=== PATIENT | male | born 1935 | race African-American/Black ===

== ENCOUNTER 2020-09-09 11:30 | Outpatient (CLI) | payer MEDICARE, SELFPAY ==
[2020-09-09 12:07] LABS: Alanine Aminotransferase 25 U/L (4-50); Aspartate Amino Transferase 44 U/L (17-59)
== END 2020-09-09 11:31 | disposition home or self-care (01) ==
PROVIDERS: PCP Internal Medicine; Visit Provider Podiatrist Foot & Ankle Surgery
DX: B35.1 Tinea unguium (principal)
CPT/HCPCS: 36415; 84450; 84460

== ENCOUNTER 2023-10-19 09:35 | Observation (INO) | payer MEDICARE, SELFPAY ==
[2023-10-19] VITALS (33 sets, daily range): BP systolic 106–151; BP diastolic 53–74; PULSE 59–75; RESP 13–19; TEMP 36.3–37.1; O2SAT 98–100; BMI 24.7
--- NOTE | ~2023-10-19 | CT_ITS ---
Non-contrast Head CT History: Head injury Technique: Axial non-contrast imaging of the brain was performed. Dose reduction technique was used on this scan by utilizing automated exposure control and iterative reconstruction technique. The dose -length product (DLP) was 605.33 mGy-cm. Findings: There is no evidence of intracranial hemorrhage, mass lesion, or acute infarct. Brain par enchyma appears normal. The ventricles and subarachnoid spaces are normal in size. The calvarium ap pears normal. The visualized paranasal sinuses and mastoid air cells are clear. Impression: No significant abnormality seen. Reviewed, dictated and finalized at [facility]. UMER SAFETY INSPECTOR Impression: No significant abnormality seen.
--- NOTE | ~2023-10-19 | MR_ITS ---
EXAMINATION: MR abdomen wo/w con DATE: 10/20/2023 13:09 INDICATION: Abnormal CT scan TECHNIQUE: Magnetic resonance imaging (MRI) of the abdomen was performed without and with 15 mL Multi serina intravenous contrast. Sequences included coronal T2-weighted SS-FSE, coronal and axial FS 2D-F IESTA, axial STIR FSE, axial T2-weighted SS-FSE, axial T2-weighted FS SS-FSE, axial diffusion-weighte d SE, axial dual-echo T1-weighted FSPGR, and axial and coronal T1-weighted LAVA. Postcontrast axial T 1-weighted LAVA images were obtained in a time course. Postcontrast coronal T1-weighted LAVA images w ere obtained. COMPARISON: CT dated 10/19/2023 FINDINGS: Borderline heart size. No pericardial or pleural effusion. Nonenhancing 3.0 x 3.3 cm complex cyst at the posterior right hepatic lobe predominantly T2 hypointense with small posterior region of increase d T1 and decreased T2 signal which could represent either blood or proteinaceous fluid. Couple additi onal 1.3 cm and 1.0 cm nonenhancing simple appearing T2 hyperintense hepatic cysts. Serpiginous dilat ed enhancing vessels at the dome of the liver corresponding to the region of concern on prior CT. The vessels enhance during portal venous phase there appears to be clearly enhancement of the draining p osterior right hepatic vein. Metallic magnetic field artifact associated with cholecystectomy clips t he gallbladder fossa. Likely secondary mild dilation of the common bile duct and mild dilation of por tions of the intrahepatic biliary tree extending to the dome of the right hepatic lobe. Spleen and bi lateral adrenal glands are normal. There are few T2 hyperintense nonenhancing cysts at the head and b arnie of the pancreas the largest pancreatic head measuring 2.3 cm in maximal diameter. Bilateral kidne ys are normal. Visualized portions of bowels are unremarkable. No pathologically enlarged abdominal l ymphadenopathy. Mild thoracolumbar dextrocurvature with mild thoracic and severe lower lumbar spondyl osis, the latter including fusion across the right side of the L4-L5 disc space. Normal marrow signal with no pathologic marrow replacing process. IMPRESSION: 1. 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 2. A few simple appearing cysts at the head and body the pancreas without evident solid enhancing sof t tissue component which suggests sequela of chronic pancreatitis. Correlate with clinical history an d recommend year follow-up pre and postcontrast MRI. Reviewed, dictated and finalized at location A. ING SUPERVISOR IMPRESSION: 1. Serpiginous and dilated enhancing vessel at the dome of the liver which appe ars to represent an intrahepatic portal venous-hepatic venous shunt. 2. A few simple appearing cysts at the head and body the pancreas without evide nt solid enhancing soft tissue component which suggests sequela of chronic panc reatitis. Correlate with clinical history and recommend year follow-up pre and postcontrast MRI.
--- NOTE | ~2023-10-19 | XR_ITS ---
. XR chest 2V 10/19/2023 12:42 Indication: Chest pain Procedure: 2 view chest Comparison: No prior studies for comparison. Findings: Heart size upper normal. No focal air space disease, pulmonary edema, pleural effusion or s uspected pneumothorax. Elevated right diaphragm. No acute osseous abnormality. Impression: 1: No acute cardiopulmonary disease. Reviewed, dictated and finalized at location L. MOTIVE OBSERVER Impression: 1: No acute cardiopulmonary disease.
--- NOTE | ~2023-10-19 | CT_ITS ---
EXAMINATION: CTA chest abdomen pelvis DATE: 10/19/2023 13:32 INDICATION: Chest wall pain post fall TECHNIQUE: Computed tomographic angiography (CTA) of the chest, abdomen, and pelvis was performed wit h 100 mL Omnipaque-350 intravenous contrast. Volume-rendered 3D-reconstructions of the aorta and larg e arteries were constructed by the technologist on a separate workstation. Automated exposure control and iterative reconstruction technique were employed. The dose-length product was 1009.52 mGy-cm. COMPARISON: None FINDINGS: Chest : Mild varicose bronchiectasis along a bronchus in the superior segment of the lingula. Eventration nirmal ng the right hemidiaphragm. No suspicious pulmonary nodules, pneumonia, pulmonary edema, pleural effu gwen or pneumothorax. Heart size is normal. Atherosclerotic coronary artery calcifications. No perica rdial effusion. Thoracic aorta is normal in caliber with no dissection or acute traumatic aortic inju ry. No pathologically enlarged thoracic lymphadenopathy. Small sliding-type hiatal hernia. Mild thora cic spondylosis with bridging osteophytes at multiple levels consistent with diffuse idiopathic skele timbo hyperostosis (DISH). No acute fracture. Abdomen and pelvis: There is heterogeneous enhancement at the dome of the liver with configuration suggesting dilated ves allen potentially a vascular malformation. Mild intra- and moderate extra hepatic biliary ductal dilati on likely related to prior cholecystectomy with surgical clips at the gallbladder fossa. No evident o bstructing stones or masses identified. 2.5 cm simple appearing cystic lesion at the head of the panc reas. Spleen, bilateral adrenal glands and kidneys are normal. Bowels including the appendix are norm al. Bladder is normal. Marked prostatomegaly measuring 6.3 x 6.2 cm in maximal transaxial dimensions. There is a 2.5 x 2.2 cm soft tissue density nodule extending cephalad from the region of the junctio n of the posterior prostate in the bilateral seminal vesicles. No free intraperitoneal gas or fluid. No pathologically enlarged abdominal or pelvic lymphadenopathy. There is calcified atherosclerosis sc attered throughout the normal caliber abdominal aorta and many of the other arteries. Moderate stenos is at the origin of the left renal artery with mild stenosis at the origin of the celiac axis and sup erior mesenteric artery. There is suggestion of a small dissection flap within the celiac axis. The m ore peripheral common hepatic artery and splenic artery appear normal. Severe lower lumbar spondylosi s. Developing ankylosis at the bilateral sacroiliac joints were advanced on the right. Severe right a nd moderate left hip osteoarthritis. No acute osseous abnormality. IMPRESSION: 1. No acute fracture or acute visceral organ injury in the chest, abdomen or pelvis. 2. Region of heterogeneous enhancement at the dome of the liver with appearance suggesting a dilated intrahepatic vessel, potentially related to vascular malformation. Recommend further evaluation with multiphase pre and postcontrast MRI or CT. 3. Small sliding-type hiatal hernia. 4. Scattered atherosclerotic calcific lesions with moderate stenosis at the origin of the left renal artery. 5. 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 6. Prostatomegaly with nonspecific 2.5 x 2.1 cm soft tissue density nodule potentially arising from t he prostate which extends posterior superiorly from the prostate between the bilateral seminal vesicl es and which could be either benign or malignant. Reviewed, dictated and finalized at location A. DRY SUPERVISOR IMPRESSION: 1. No acute fracture or acute visceral organ injury in the chest, abdomen or pe lvis. 2. Region of heterogeneous enhancement at the dome of the liver with appearance suggesting a dilated intrahepatic vessel
--- NOTE | 2023-10-19 12:06 | ECG_ITS ---
Measurements Intervals [place] Rate: 57 P: 45 DE: 194 QRS: 14 QRSD: 175 T: 37 QT: 462 QTc: 452 Interpretive Statements SINUS BRADYCARDIA RIGHT BUNDLE BRANCH BLOCK CANNOT RULE OUT SEPTAL INFARCT, AGE INDETERMINATE ABNORMAL ECG NO PREVIOUS ECG AVAILABLE FOR COMPARISON Electronically Signed On 10-19-2023 12:51:57 EXECUTIVE LEGAL SECRETARY by Vivek Wang D.O.
[2023-10-19 12:31] LABS: Basophils Absolute Auto 0.1 K/mm3 (0.0-0.1); Basophils Percent Auto 0.7 % (0.2-1.2); Eosinophils Absolute Auto 0.1 K/mm3 (0-0.3); Eosinophils Percent Auto 1.1 % (0-4.4); Hematocrit 22.3 % (42.0-52.0); Immature Granulocyte Absolute 0.02 K/mm3 (0.00-0.031); Immature Granulocyte Percent A 0.3 % (0-0.5); Immature Platelet Fraction Pct 5.6 % (0.9-11.2); Lymphocytes Percent Auto 14.7 % (18.3-44.2); Mean Corpuscular HGB Conc 25.6 g/dl (32-36); Mean Corpuscular Volume 62.5 fl (80-100); Mean Platelet Volume 10.2 fl (7.4-10.4); Monocytes Percent Auto 12.9 % (2.6-8.5); Neutrophils Absolute Auto 5.3 K/mm3 (1.3-6.7); Neutrophils Percent Auto 70.3 % (45.5-73.1); Platelet Count Result 278 k/mm3 (150-375); Red Blood Count 3.57 M/mm3 (4.6-6.20); Red Cell Distribution Width 20.7 % (11.5-14.5); White Blood Count 7.5 K/mm3 (4.5-10.0)
[2023-10-19 12:35] LABS: Hemoglobin 5.7 g/dL (14.0-18.0)
[2023-10-19 12:39] LABS: Hypochromasia 3+ (NORMAL); Platelet Estimate Adequate (Adequate); Schistocytes None Seen (NORMAL)
[2023-10-19 12:40] LABS: Ovalocytes 1+ (NORMAL); Target Cells 2+ (NORMAL); Tear Drop Cells 1+ (NORMAL)
[2023-10-19 12:41] LABS: Alanine Aminotransferase 12 U/L (6-50); Albumin Level 3.7 g/dL (3.5-5.1); Alkaline Phosphatase 59 U/L (38-126); Anion Gap 8 mmol/L (8-16); Aspartate Amino Transferase 27 U/L (17-59); Bilirubin,Total 0.5 mg/dL (0.2-1.3); Blood Urea Nitrogen 20 mg/dL (9-20); Calcium 9.2 mg/dL (8.4-10.2); Carbon Dioxide 26 mmol/L (22-30); Chloride 108 mmol/L (98-107); Estimated CRCL calculation 39 ml/min; Estimated Glomerular Filt Rate > 60; Glucose 93 mg/dL (65-110); Lipase 38 U/L (23-300); Potassium 4.1 mmol/L (3.4-5.0); Sodium 142 mmol/L (137-145)
[2023-10-19 12:51] LABS: Troponin I < 0.012 ng/mL (0.000-0.034)
[2023-10-19 12:54] LABS: Partial Thromboplastin Time 22.1 SECONDS (22.3-36.8); Prothrombin Time 13.9 Seconds (11.1-14.7)
--- NOTE | 2023-10-19 13:19 | ED.FALL ---
HPI - Fall General Chief Complaint: Fall Stated Complaint: fall/chest and hi no thinners Time Seen by Provider: 10/19/23 12:18 History of Present Illness HPI Narrative: 88-year-old male presents to the emergency department for evaluation after having a ground level fall. Patient states he was walking on a hardwood floor while wearing socks and slipped falling forward and striking his chest. Patient reports the pain is worsened with ambulation. Patient denies any associated shortness of breath with this. Patient denies any abdominal pain. Patient does not take any blood thinners. Patient has no prior history of anemia or GI bleed. Related Data Home Medications Medication Instructions Recorded Confirmed amlodipine 5 mg tablet 5 mg PO DAILY 02/26/23 10/19/23 brimonidine 0.2 %-timolol 0.5 % 1 drp EACH EYE Q12H 02/26/23 eye drops (Combigan) dorzolamide 2 % eye drops 1 drp EACH EYE TID 02/26/23 latanoprost 0.005 % eye drops 1 drp EACH EYE DAILY 02/26/23 olmesartan 40 1 tablet PO DAILY 02/26/23 mg-hydrochlorothiazide 25 mg tablet netarsudil 0.02 % eye drops drp 10/19/23 (Rhopressa) Allergies Allergy/AdvReac Type Severity Reaction Status Date / Time orphenadrine Allergy Unknown Verified 10/19/23 10:26 Review of Systems Review of Systems: All systems reviewed & are unremarkable except as noted in HPI and below PMFSH Past Medical History Medical History (Updated 10/19/23 @ 18:40 by Brayden Ford MD) Hypertension Primary osteoarthritis of knees, bilateral Exam Narrative: APPEARANCE: Well appearing, no pain, no distress, well-nourished. HEAD: normocephalic, atraumatic. EYES: PERRLA/EOMI, conjunctivae clear. NOSE: Normal no drainage EARS:TMS clear with good light reflex. THROAT: Pharynx clear, no exudate. NECK: Supple. No adenopathy, no masses. RESPIRATORY: Airway patent, respirations nonlabored. Clear to auscultation bilaterally, no rales, rhonchi, wheezing. CARDIOVASCULAR: Regular rate and rhythm without murmurs rubs or gallops. ABDOMINAL: Soft, nontender, nondistended, normal bowel sounds Rectal: Negative Hemoccult on the digital rectal exam MUSCULOSKELETAL: Moves all extremities. Strength/ROM intact, No edema, No calf tenderness. Right-sided chest wall tenderness NEURO: Alert. Cranial nerves II through XII intact. Grossly intact SKIN: Warm, dry. Normal Color Course Course Emergency Course: 88-year-old male presents emergency department for evaluation for chest wall pain and head injury after a ground level fall. Patient's hemoglobin was found to be 5.7. Patient does have pale conjunctiva. Patient has no acute abnormalities on his CMP. Chest x-ray showed no acute cardiopulmonary abnormality. Patient was Hemoccult negative on the digital rectal exam. CTA and CT head showed no explanation for the patient's symptoms. Case was discussed with hospitalist patient was accepted for admission. Patient family are updated on the results of the workup planned for admission Vital Signs Vital signs: Vital Signs Temperature 97.6 F 10/19/23 10:16 Pulse Rate 63 10/19/23 10:16 Respiratory Rate 16 10/19/23 10:16 Blood Pressure 109/57 L 10/19/23 10:16 Pulse Oximetry 100 10/19/23 10:16 Oxygen Delivery Room Air 10/19/23 10:16 Temperature 98.3 F 10/19/23 17:36 Pulse Rate 71 10/19/23 17:36 Respiratory Rate 17 10/19/23 17:36 Blood Pressure 129/64 10/19/23 17:36 Pulse Oximetry 100 10/19/23 17:36 Oxygen Delivery Room Air 10/19/23 10:16 MDM - Fall Differential Diagnosis Differential diagnosis: Likely other Lab Data Attestation: I reviewed the patient's lab results. 10/19/23 12:23 10/19/23 12:23 Labs: Lab Results 10/19/23 10/19/23 10/19/23 Range/Units 12:23 13:03 15:13 WBC 7.5 (4.5-10.0) K/mm3 RBC 3.57 L (4.6-6.20) M/mm3 Hgb 5.7 L* (14.0-18.0) g/dL Hct 22.3 L (42.0-52.0) % MCV 62.5 L (80-100)
[2023-10-19] MEDS: SODIUM CHLORIDE 0.9% IV 250 ML 30 ML IV CONT (14:26)
[2023-10-19] MEDS: TUBING, BLOOD SET 1 EACH XX (14:26)
--- NOTE | 2023-10-19 15:25 | ECG_ITS ---
Measurements Intervals [place] Rate: 63 P: 12 ID: 171 QRS: 26 QRSD: 157 T: 43 QT: 455 QTc: 466 Interpretive Statements SINUS RHYTHM RIGHT BUNDLE BRANCH BLOCK ABNORMAL ECG COMPARED TO ECG 10/19/2023 12:11:20 SINUS RHYTHM NOW PRESENT Electronically Signed On 10-20-2023 9:07:32 NUTRITION SERVICES ASSOCIATE by Vivek Wang D.O.
[2023-10-19 16:00] LABS: Immature Reticulocyte Fraction 20.5 % (3.0-15.9); Reticulocyte Hemoglobin Conten 15.7 pg (28.2-35.7); Reticulocyte Percent 1.72 % (0.7-4.3); Reticulocytes Absolute 0.06 M/mm3 (0.02-0.1)
[2023-10-19 16:01] LABS: Troponin I < 0.012 ng/mL (0.000-0.034)
--- NOTE | 2023-10-19 16:25 | PC.NURSE ---
Attempted to draw new labs ordered and was unsuccessful X3. Phlebotomy called to attempt.
[2023-10-19 16:55] LABS: Iron 16 ug/dL (49-181)
[2023-10-19 17:06] LABS: Percent Iron Saturation 4 % (20-50)
[2023-10-19 17:32] LABS: Ferritin 5.21 ng/mL (11.1-264)
[2023-10-19 18:04] LABS: Folic Acid 12.7 ng/mL (2.76->20)
--- NOTE | 2023-10-19 19:32 | PM.IMHP ---
H&P: HPI History of Present Illness Date/Time: 10/19/23 20:15 Chief Complaint: Fall. Narrative: This is an 88-year-old male with hypertension who presented to the emergency department via private vehicle from home for evaluation after a fall. The patient provides the following history. Patient states he was walking on a hardwood floor in his home while wearing socks and he accidentally slipped and fall forward, striking his chest on the floor. He reports pain in the anterior chest since that time, worse with movement and ambulation. He has no other complaints of injury and denies head trauma and loss of consciousness. He denies feeling lightheaded and dizzy prior to the fall and reports that it was purely mechanical. He also denies recent cold and flu symptoms, pleuritic pain, nausea, vomiting, diarrhea, melena, hematochezia, edema, and calf pain. Vital signs were stable on arrival to the ED. Labs were significant for a hemoglobin of 5.7, hematocrit 22.3%, MCV 62.5, troponin <0.012. EKG showed sinus bradycardia with right bundle branch block and possible age-indeterminate septal infarct. Head CT was normal. CTA of the chest, abdomen, and pelvis showed no acute fracture or acute visceral organ injury but several other incidental findings including heterogeneous enhancement of the dome of the liver which is potentially related to vascular malformation, small sliding type hiatal hernia, scattered atherosclerotic lesions with moderate stenosis at the origin of the renal artery on the left, suggestion of a short dissection flap along the celiac axis, and prostatomegaly with a nonspecific 2.5 x 2.1 cm soft tissue density. Stool was Hemoccult negative on digital rectal exam per ED physician. He has not noticed any dark stools or bright red blood in the stools. Colonoscopy many years ago showed benign polyps. His weight has remained stable. He has not had any abdominal pain. He is being admitted in this setting for blood transfusion, close monitoring, and further evaluation. Review of Systems Review of Systems: Twelve systems were reviewed. No history of cardiac disease or cardiac dysrhythmia. He wore an event monitor last month for 7 days as he was having ?funny feelings? in his chest. He denied overt chest pain and feelings of irregular heartbeat. Reportedly the event monitor did not show any specific findings. He has a heart murmur on exam but has not had exertional chest pain, syncope, near syncope, or shortness of breath. No lower extremity edema. Except as documented, all other systems were reviewed and are negative. [facility] Past Medical History Medical History Atherosclerotic vascular disease Enlarged prostate Glaucoma Hypertension Primary osteoarthritis of knees, bilateral Surgical History Surgical History (Updated 10/20/23 @ 00:16 by Daisha Nicole PA-C) History of cholecystectomy Family History Family History (Updated 10/20/23 @ 00:16 by Daisha Nicole PA-C) Other Family history non-contributory Social History Social History (Updated 10/20/23 @ 00:18 by Daisha Nicole PA-C) Social History: Surrogate medical decision maker: Jeaneth Richardson, spouse. Code status: Full code. Smoking status: Former smoker Alcohol intake: never Substance use: never Do You Feel Safe in your Home?: Yes Lack of Transportation: No Lack of Food: Never True Current Housing: I Have Housing Concerned About Future Housing: No Difficulty Paying Gas/Electric Bills: No Difficulty Paying for Meds: No Currently Unemployed: No Education: Decline to Answer Difficulty w/ Childcare or Family Care: No Additional living arrangements comments: Lives with spouse in [place]. Children live close and are around frequently. Additional occupation/education comments: Retired from [employer]. Spiritual care concerns: No Meds Home Medications and Allergies
--- NOTE | 2023-10-19 19:46 | ADMGEN ---
This patient, Henry Richardson, was admitted to IMU Room 200-01. Patient/family oriented to hospital policies and general routines including ID bracelet, bed and alarms, visiting hours, pain management, procedures, bathroom and other care routines, personal items, smoking policy, room service/diet, and visiting hours. Information on how to activate the Rapid Response Team has been discussed. Patient/Family are encouraged to report perceived risks to care and to ask questions if they do not understand what they are told or what they should do.
[2023-10-19 21:14] LABS: Troponin I < 0.012 ng/mL (0.000-0.034)
[2023-10-19 22:54] LABS: Hematocrit 29.3 % (42.0-52.0); Hemoglobin 8.2 g/dL (14.0-18.0)
[2023-10-20] VITALS (24 sets, daily range): BP systolic 124–152; BP diastolic 48–72; PULSE 53–74; RESP 16–18; TEMP 36.4–37.1; O2SAT 96–100; BMI 24.7
[2023-10-20 05:14] LABS: Hematocrit 27.7 % (42.0-52.0); Hemoglobin 7.8 g/dL (14.0-18.0); Immature Platelet Fraction Pct 5.7 % (0.9-11.2); Mean Corpuscular HGB Conc 28.2 g/dl (32-36); Mean Corpuscular Hemoglobin 19.4 pg (26-34); Mean Corpuscular Volume 68.7 fl (80-100); Mean Platelet Volume 9.7 fl (7.4-10.4); Platelet Count Result 237 k/mm3 (150-375); Red Blood Count 4.03 M/mm3 (4.6-6.20); White Blood Count 7.3 K/mm3 (4.5-10.0)
[2023-10-20 05:20] LABS: Anion Gap 4 mmol/L (8-16); Blood Urea Nitrogen 15 mg/dL (9-20); Calcium 8.9 mg/dL (8.4-10.2); Carbon Dioxide 26 mmol/L (22-30); Chloride 110 mmol/L (98-107); Cholesterol 123 mg/dL (0-200); Estimated CRCL calculation 41 ml/min; Estimated Glomerular Filt Rate > 60; Glucose 89 mg/dL (65-110); HDL Direct 49 mg/dL; Magnesium 2.2 mg/dL (1.6-2.3); Potassium 3.8 mmol/L (3.4-5.0); Sodium 140 mmol/L (137-145); Triglycerides 84 mg/dL (<150)
[2023-10-20 05:31] LABS: LDL Cholesterol Direct 52 mg/dL
--- NOTE | 2023-10-20 08:37 | PM.IMPN ---
Progress Note: A&P Assessment and Plan (1) Chest wall pain: Code(s): R07.89 - Other chest pain Status: Acute Assessment and Plan: Patient sustained a ground level fall and fell forward onto his chest. CTA of the chest, abdomen, and pelvis did not show any acute fractures or visceral organ injury. Pain likely musculoskeletal though EKG shows possible age-indeterminate infarct. Echocardiogram ordered to evaluate EKG and murmurs on exam. (2) Microcytic anemia: Code(s): D50.9 - Iron deficiency anemia, unspecified Status: Acute Assessment and Plan: Hemoglobin was 5.7 on arrival. MCV suggestive of profound iron deficiency. Stool was Hemoccult negative on rectal exam per ED physician. B12 and folate within normal limits, hemoglobin electrophoresis ordered and pending Appears to have iron deficiency anemia, will defer further management to Hematology/Oncology consultation, pending Transfused 2 units packed red blood cells 10/19 Hemoglobin 7.8 today, monitor 10/20: venofer ordered by heme/onc, started on ferrous sulfate + colace and miralax (3) Enlarged prostate: Code(s): N40.0 - Benign prostatic hyperplasia without lower urinary tract symptoms Status: Acute Assessment and Plan: CT shows prostatomegaly with a nonspecific 2.5 x 2.1 cm soft tissue density nodule potentially arising from prostate. Abdominal MRI ordered for further characterization of the liver abnormality may get a better picture of this nodule. (4) Abnormal finding on imaging of liver: Code(s): R93.2 - Abnormal findings on diagnostic imaging of liver and biliary tract Status: Acute Assessment and Plan: CT showed region of heterogeneous enhancement at the dome of the liver with recommendations for pre and postcontrast imaging to evaluate for possible vascular malformation. 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 Patient denies abdominal pain; blood pressures are pretty well controlled. Does not seem to be causing acute issues; should follow with vascular as an outpatient. (6) Hypertension: Code(s): I10 - Essential (primary) hypertension Status: Acute Assessment and Plan: Blood pressures were reviewed 10/20 and they are stable. Continue amlodipine, olmesartan, and hydrochlorothiazide. (7) Glaucoma: Code(s): H40.9 - Unspecified glaucoma Status: Acute Assessment and Plan: Continue eyedrops; he may take his medications from home if non formulary. Plan DVT prophylaxis with SCDs GI prophylaxis not indicated Code status full code Subjective Date/time seen: 10/20/23 08:37 Interval history: 88-year-old male with history of hypertension is presenting after a fall. No overnight events noted. No chest pain or shortness of breath. No nausea, vomiting or diarrhea. No fevers or chills. Patient has not had a bowel movement since Wednesday and is requesting a stool softener. Review of Systems Review of Systems: 12 point review of systems was assessed and was negative except as noted in the HPI Exam Narrative: General: No acute distress, alert and oriented per baseline HEENT: Atraumatic, normocephalic, mucous membranes moist CV: Regular rate and rhythm, S1, S2 Lungs: Clear to auscultation bilaterally, no rales or crackles noted, no wheezes, good air entry Abdomen: Soft, nontender, nondistended Extremities: Normal to inspection Skin: No rashes noted, no lesions or wounds seen Psych: Euthymic, normal affect Objective Data Vital Signs Vital Signs: Vital Signs - 24 hr 10/19/23 10:16 10/19/23 13:00 10/19/23 14:00 Temperature 97.
[2023-10-20] MEDS: PERFLUTREN LIPID MICROSPHERES 1.5 ML VIAL DILUTED TO 10 ML TOTAL VOLUME IV PUSH (09:25)
[2023-10-20 10:01] LABS: Prostate Specific Antigen 5.7 ng/mL (< OR = 4.0)
[2023-10-20] MEDS: amLODIPine BESYLATE 5 MG TABLET PO (10:23)
[2023-10-20] MEDS: OLMESARTAN MEDOXOMIL 20 MG TABLET 40 MG PO (10:23)
[2023-10-20] MEDS: hydroCHLOROthiazide 25 MG TABLET PO (10:23)
[2023-10-20] MEDS: DORZOLAMIDE HCL 2% OPHTH DROPS 1 DROP EACH EYE ×2 (10:24→22:00)
[2023-10-20] MEDS: LATANOPROST 0.005% OP SOLN 2.5 ML BTL 1 DROP EACH EYE (10:25)
--- NOTE | 2023-10-20 10:34 | PDONCCN ---
HPI - Date of Consult Date/Time: 10/20/23 18:34 <Mathieu Friedman - 10/20/23 18:38> 10/20/23 10:34 <Krystal Sher - 10/20/23 10:45> Requesting Physician: Enoch Bueno MD <Mathieu Friedman - 10/20/23 18:38> Enoch Bueno MD <Krystal Sher - 10/20/23 10:45> Primary Care Provider: Martin Mclean, <Mathieu Friedman - 10/20/23 18:38> Martin SierraMD <Krystal Sher - 10/20/23 10:45> - Consult Narrative Reason for consult: Anemia <Krystal Sher - 10/20/23 10:45> Narrative: Henry Richardson is a 88 year old male <Mathieu Friedman - 10/20/23 18:38> Henry Richardson is a 88 year old male with a past medical history of hypertension who presented to the emergency department after a fall. He states he was already up and walking and went to grab the dresser and fell on the floor hitting his chest. He denies dizziness or hitting his head. He denies nausea, vomiting, diarrhea, melena, hematochezia. Labs were notable for a hemoglobin of 5.7, hematocrit 22.3%, MCV 62.5. EKG showed sinus bradycardia with right bundle branch block and possible age-indeterminate septal infarct. Head CT was normal. CTA of the chest, abdomen, and pelvis showed no acute fracture or acute visceral organ injury but several other incidental findings including heterogeneous enhancement of the dome of the liver which is potentially related to vascular malformation, and prostatomegaly with a nonspecific 2.5 x 2.1 cm soft tissue density. Stool was hemoccult negative on digital rectal exam per ED physician. He has not noticed any dark stools or bright red blood in the stools. Colonoscopy many years ago showed benign polyps. His weight has remained stable. He denies abdominal pain. He denies any issues with his prostate in the past. His daughter reports regular PSA and blood checks. He denies any urinary issues or blood in his urine. He received 2 units of PRBCS and Hgb now 7.8. Iron studies found to be severely iron deficiency with iron of 16, % sat 4, ferritin 5, and B12 788. There is a family history of sickle cell trait. No history of anemia, iron deficiency, blood donations, or stomach surgeries in the past. <GoyomichaelKrystal 10/20/23 11:00> Review of Systems - Review of Systems All systems reviewed & are unremarkable except as noted in HPI and bel <GoyomichaelKrystal 10/20/23 10:45> [facility] Medical History: Medical History (Last Reviewed 10/20/23 @ 00:16 by Daisha Nicole PA-C) Atherosclerotic vascular disease Enlarged prostate Glaucoma Hypertension Primary osteoarthritis of knees, bilateral <Mathieu Friedman M. - 10/20/23 18:38> Medical History (Last Reviewed 10/20/23 @ 00:16 by Daisha Nicole PA-C) Atherosclerotic vascular disease Enlarged prostate Glaucoma Hypertension Primary osteoarthritis of knees, bilateral <NikkyKrystal 10/20/23 10:45> Surgical History: Surgical History (Last Updated 10/20/23 @ 00:16 by Daisha Nicole PA-C) History of cholecystectomy <Mathieu Friedman M. - 10/20/23 18:38> Surgical History (Last Updated 10/20/23 @ 00:16 by Daisha Niocle PA-C) History of cholecystectomy <NikkyKrystal 10/20/23 10:45> Family History: Family History (Last Updated 10/20/23 @ 00:16 by Daisha Nicole PA-C) Other Family history non-contributory <Mathieu Friedman M. - 10/20/23 18:38> Family History (Last Updated 10/20/23 @ 00:16 by Daisha Nicole PA-C) Other Family history non-contributory <Krystal Sher 10/20/23 10:45> - Social History Social History: Social History (Last Updated 10/20/23 @ 00:18 by Daisha Nicole PA-C) Alcohol Use: Alcohol intake: never Substance Use: Substance use: never Others: Spiritual care concerns: No Smoking Status: Smoking status: Former smoker Approximate Smoking E
[2023-10-20 10:47] LABS: Reticulocyte Hemoglobin Conten 16.9 pg (28.2-35.7); Reticulocyte Percent 0.81 % (0.7-4.3); Reticulocytes Absolute 0.03 M/mm3 (0.02-0.1)
[2023-10-20 10:48] LABS: Lactate Dehydrogenase 192 U/L (120-246)
--- NOTE | 2023-10-20 11:16 | IVDEFINITY ---
Prior to administration of IV Definity the patient was educated on the risks and benefits of the imaging enhancing agent including potential adverse side effects. The patient verbalized understanding. Allergies were verified. No exclusion criteria were identified and at least one of the following inclusion criteria were met: 1) physician request, 2) patient technically difficult to image (per the [place] [employer] guidelines of two or more segments not discernable within the apical view), or 3) questionable left ventricular function. ?
[2023-10-20] MEDS: IRON SUCROSE COMPLEX 500 MG in SODIUM CHLORIDE 0.9% IV 250 ML 78.57 MG IVPB (11:45)
[2023-10-20] MEDS: BRIMONIDINE TARTRATE 0.2% OP SOLN 5 ML BTL 1 DROP EACH EYE ×2 (11:46→22:00)
[2023-10-20] MEDS: TIMOLOL MALEATE 0.5% OP SOLN 5 ML BOTTLE 1 DROP EACH EYE ×2 (11:46→22:00)
[2023-10-20 15:51] LABS: IFOB Positive Control Positive; Immunochemical Fecal Occult Bl Positive (N)
[2023-10-20] MEDS: FERROUS SULFATE 325 MG TABLET DR PO (17:32)
--- NOTE | 2023-10-20 19:51 | ECHO_ITS ---
Patient Info Name: Henry Richardson Age: 88 years : 1935 Gender: Male Ht: 68 in Wt: 180 lbs BSA: 2.00 m2 HR: 58 bpm BP: 124 / 48 mmHg Heart Rhythm: Sinus Rhythm Technical Quality: Good Exam Date: 10/20/2023 8:58 AM Exam Location: Echo Lab Patient Status: Outpatient Admit Date: 10/19/2023 Staff Ordering Physician: Daisha Nicole PA-C Residential Program Worker: Kassidy Bowers RDCS Attending Provider: Enoch Bueno MD Referring Physician: Corey VO; Exam Type: CA echo dop color flow w con Study Info Indications - chest pain, htn, abn ekg Complete two-dimensional, color flow and Doppler transthoracic echocardiogram is performed with contrast to opacify the left ventricle and to improve the deliniation of the left ventricle endocardial borders. Summary 1. Left ventricular chamber dimension is normal. 2. Left ventricular systolic function is normal, estimated at 60-65%. 3. There is no increased left ventricular wall thickness. 4. The left ventricular diastolic function is grade I diastolic dysfunction. 5. There is mild tricuspid valve regurgitation. 6. There is moderate aortic valve sclerosis. Left Ventricle Left ventricular chamber dimension is normal. Left ventricular systolic function is normal, estimated at 60-65%. There is no increased left ventricular wall thickness. The left ventricular diastolic function is grade I diastolic dysfunction. Right Ventricle Right ventricular chamber dimension is normal. Right ventricular systolic function is normal. Left Atria Left atrial chamber dimension is normal. Right Atria Right atrial chamber dimension is normal. Atrial Septum Intact interatrial septum visualized by color flow imaging. Aortic Valve The aortic valve is trileaflet. There is moderate aortic valve sclerosis. There is no aortic valve stenosis. There is trace aortic valve regurgitation. Pulmonic Valve The pulmonic valve is normal. There is no pulmonic valve stenosis. There is trace pulmonic regurgitation. Mitral Valve The mitral valve has normal leaflets. There is no mitral valve stenosis. There is trace mitral valve regurgitation. Tricuspid Valve The tricuspid valve leaflets are normal. There is no significant tricuspid valve stenosis. There is mild tricuspid valve regurgitation. No pulmonary hypertension, estimated pulmonary arterial systolic pressure is 32 mmHg. Pericardium/Pleural The pericardium appears normal. There is no pericardial effusion. Inferior Vena Cava Normal inferior vena cava with >50% collapse upon inspiration consistent with normal right atrial pressure, 10 mmHg. Aorta The aortic root size at the sinus of Valsalva is normal. The prox ascending aorta size is normal. Left Ventricular Outflow Tract Name Value Normal LVOT 2D LVOT Diameter 1.97 cm LVOT Doppler LVOT Peak Gradient 14 mmHg LVOT Mean Gradient 7 mmHg LVOT VTI 42.30 cm LVOT VTI/AV VTI Ratio 0.92 LVOT Stroke Volume 128.34 ml LVOT CO 7.51 l/min LVOT CI 3.77 L/min/m2
[2023-10-20] MEDS: SENNA/DOCUSATE SODIUM TABLET 1 TAB PO (22:00)
[2023-10-20] MEDS: ONDANSETRON INJ 4 MG/2 ML VIAL IV PUSH (23:40)
[2023-10-20] MEDS: PANTOPRAZOLE SODIUM IV 40 MG VIAL IV PUSH (23:40)
[2023-10-21] VITALS (15 sets, daily range): BP systolic 108–148; BP diastolic 46–63; PULSE 51–77; RESP 16–20; TEMP 36.3–36.9; O2SAT 95–100
[2023-10-21 05:15] LABS: Basophils Absolute Auto 0.1 K/mm3 (0.0-0.1); Basophils Percent Auto 0.5 % (0.2-1.2); Eosinophils Absolute Auto 0.2 K/mm3 (0-0.3); Eosinophils Percent Auto 1.2 % (0-4.4); Hematocrit 28.8 % (42.0-52.0); Hemoglobin 8.1 g/dL (14.0-18.0); Immature Granulocyte Absolute 0.07 K/mm3 (0.00-0.031); Immature Granulocyte Percent A 0.6 % (0-0.5); Immature Platelet Fraction Pct 7.2 % (0.9-11.2); Lymphocytes Percent Auto 6.5 % (18.3-44.2); Mean Corpuscular HGB Conc 28.1 g/dl (32-36); Mean Corpuscular Hemoglobin 19.3 pg (26-34); Mean Corpuscular Volume 68.6 fl (80-100); Monocytes Absolute Auto 1.4 K/mm3 (0.1-0.6); Monocytes Percent Auto 11.7 % (2.6-8.5); Neutrophils Absolute Auto 9.7 K/mm3 (1.3-6.7); Neutrophils Percent Auto 79.5 % (45.5-73.1); Nucleated Red Blood Cells Perc 0.3 % (0.0-0.2); Platelet Count Result 205 k/mm3 (150-375); Red Cell Distribution Width 28.7 % (11.5-14.5); White Blood Count 12.3 K/mm3 (4.5-10.0)
[2023-10-21 05:34] LABS: Alanine Aminotransferase 14 U/L (6-50); Albumin Level 2.9 g/dL (3.5-5.1); Alkaline Phosphatase 53 U/L (38-126); Anion Gap 5 mmol/L (8-16); Aspartate Amino Transferase 27 U/L (17-59); Bilirubin,Total 0.6 mg/dL (0.2-1.3); Blood Urea Nitrogen 14 mg/dL (9-20); Calcium 8.7 mg/dL (8.4-10.2); Carbon Dioxide 25 mmol/L (22-30); Chloride 107 mmol/L (98-107); Estimated CRCL calculation 41 ml/min; Estimated Glomerular Filt Rate > 60; Glucose 100 mg/dL (65-110); Potassium 3.9 mmol/L (3.4-5.0); Sodium 137 mmol/L (137-145)
[2023-10-21 05:40] LABS: Hypochromasia 2+ (NORMAL); Platelet Estimate Adequate (Adequate)
[2023-10-21 05:41] LABS: Anisocytosis 1+ (NORMAL); Large Platelets Present; Ovalocytes 1+ (NORMAL); Polychromasia 1+ (NORMAL); Schistocytes Rare (NORMAL); Tear Drop Cells 1+ (NORMAL)
--- NOTE | 2023-10-21 08:35 | PM.IMPN ---
Progress Note: A&P Assessment and Plan (1) Chest wall pain: Code(s): R07.89 - Other chest pain Status: Acute Assessment and Plan: Patient sustained a ground level fall and fell forward onto his chest. CTA of the chest, abdomen, and pelvis did not show any acute fractures or visceral organ injury. PT OT ordered on 10/21. He has an abundance of support at home. (2) Microcytic anemia: Code(s): D50.9 - Iron deficiency anemia, unspecified Status: Acute Assessment and Plan: Hemoglobin was 5.7 on arrival. MCV suggestive of profound iron deficiency. Stool was Hemoccult negative on rectal exam per ED physician. Stool Hemoccult reported positive on 10/20 B12 and folate within normal limits, hemoglobin electrophoresis ordered and pending Transfused 2 units packed red blood cells 10/19. Hematology consulted. Severely iron deficient. Iron infusion ordered. Continue iron and stool softeners per Oncology. GI consult pending. Continue to monitor hemoglobin. (3) Enlarged prostate: Code(s): N40.0 - Benign prostatic hyperplasia without lower urinary tract symptoms Status: Acute Assessment and Plan: CT shows prostatomegaly with a nonspecific 2.5 x 2.1 cm soft tissue density nodule potentially arising from prostate. PSA elevated at 5.7 daughter reports he had a prostate biopsy sometime in the past. Defer further management to Oncology. 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 It appears to be non problematic and asymptomatic. Appreciate GI and Oncology recs. 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 Does not seem to be causing acute issues; should follow with vascular as an outpatient. (6) Hypertension: Code(s): I10 - Essential (primary) hypertension Status: Acute Assessment and Plan: Continue amlodipine, olmesartan, and hydrochlorothiazide. (7) Glaucoma: Code(s): H40.9 - Unspecified glaucoma Status: Acute Assessment and Plan: Continue eyedrops; he may take his medications from home if non formulary. (8) Leukocytosis: Code(s): D72.829 - Elevated white blood cell count, unspecified Status: Acute Assessment and Plan: Afebrile. Nontoxic continue to monitor. Check procalcitonin in the a.m.. Plan DVT prophylaxis with SCDs GI prophylaxis not indicated Code status full code Subjective Date/time seen: 10/21/23 08:35 Interval history: Patient seen sitting up in bed. His daughter Nai is present. He was wishing to go home today although amenable to stay after further discussion. Complains of lower abdominal discomfort points to his pelvic region. Reporting relief with defecation. Last BM was yes and Wednesday before that. Review of Systems Review of Systems: All systems reviewed & are unremarkable except as noted in HPI and below (Subjective) Exam Const: General: comfortable and no acute distress Eyes: Pupils: Equal, round and reactive pupils present Neck: Neck: supple Resp: Effort & Inspection: normal respiratory effort Auscultation: clear to auscultation bilaterally Cardio: Rate: regular rate Rhythm: regular rhythm GI: Inspection: non-distended GI Palp: Yes Soft to palpation, No Firmness to palpation present (GI), No Tenderness to palpation present (GI) and No Guarding due to palpation present (GI) Auscultation: normal
[2023-10-21] MEDS: amLODIPine BESYLATE 5 MG TABLET PO (08:36)
[2023-10-21] MEDS: FERROUS SULFATE 325 MG TABLET DR PO ×2 (08:37→17:34)
[2023-10-21] MEDS: LATANOPROST 0.005% OP SOLN 2.5 ML BTL 1 DROP EACH EYE (08:37)
[2023-10-21] MEDS: OLMESARTAN MEDOXOMIL 20 MG TABLET 40 MG PO (08:37)
[2023-10-21] MEDS: hydroCHLOROthiazide 25 MG TABLET PO (08:37)
[2023-10-21] MEDS: IRON SUCROSE COMPLEX 500 MG in SODIUM CHLORIDE 0.9% IV 250 ML 78 MG IVPB (08:40)
[2023-10-21] MEDS: BRIMONIDINE TARTRATE 0.2% OP SOLN 5 ML BTL 1 DROP EACH EYE ×2 (08:41→20:33)
[2023-10-21] MEDS: DORZOLAMIDE HCL 2% OPHTH DROPS 1 DROP EACH EYE ×2 (08:42→20:33)
[2023-10-21] MEDS: polyethylene glycoL 3350 17 GM POWD.PACK PO (08:42)
[2023-10-21] MEDS: PANTOPRAZOLE SODIUM IV 40 MG VIAL IV PUSH ×2 (08:42→20:31)
[2023-10-21] MEDS: TIMOLOL MALEATE 0.5% OP SOLN 5 ML BOTTLE 1 DROP EACH EYE ×2 (08:42→20:33)
[2023-10-21 15:17] LABS: Appearance Urine Clear (Clear); Bilirubin Urine Negative (Negative); Blood Urine Negative (Negative); Color Urine Yellow (Yellow); Glucose Urine UA Negative (Negative); Ketones Urine Negative (Negative); Leukocyte Esterase Ur Negative LEU/UL (Negative); Nitrate Urine Negative (Negative); Protein Urine Negative (Negative); Specific Grav Ur 1.013 (1.001-1.035); Urobilinogen Urine 0.2 mg/dL (<2.0); pH Urine 5.5 (5.0-9.0)
[2023-10-21 15:30] LABS: Add Urine Microscopic? NO
--- NOTE | 2023-10-21 16:44 | WPDGICN ---
Assessment and Plan Assessment and plan (1) Iron deficiency anemia: Code(s): D50.9 - Iron deficiency anemia, unspecified Status: Acute Assessment and Plan: denies overt gib but had + FOBT better now differential could be avm, malignancy, ulcer, etc given advanced age, patient and daughter leaning towards just only conservative approach. 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 He was walking and fell on the floor hitting his chest, denies dizziness. Family got concerned and came to ER. Labs showed hemoglobin of 5.7, hematocrit 22.3%, MCV 62.5 c/w BROOK. Head CT was normal. CTA of the chest, abdomen, and pelvis reviewed, showed no acute fracture or acute visceral organ injury but several other incidental findings including heterogeneous enhancement of the dome of the liver which is potentially related to vascular malformation, and prostatomegaly. He denies overt gib but had + FOBT. He says that had colonoscopy but probably more than 20 years ago. Daughter is at bedside Review of Systems Constitutional: Constitutional: Denies difficulty sleeping Eyes: Eyes: Denies blurry vision ENT: Reports Normal hearing present Cardiovascular: Cardiovascular: Denies lightheadedness Respiratory: Respiratory: Denies cough Gastrointestinal: Gastrointestinal: Denies abdominal pain Genitourinary: Genitourinary: Denies flank pain Musculoskeletal: Musculoskeletal: Denies neck pain Integumentary/Breasts: Skin/Breast: Denies rash Neurologic: Denies Abnormal speech present Psychiatric: Psychiatric: Denies behavioral changes [facility] Past Medical History Medical History (Updated 10/21/23 @ 16:47 by Bryant Briceño MD) Atherosclerotic vascular disease Enlarged prostate Glaucoma Hypertension Iron deficiency anemia Primary osteoarthritis of knees, bilateral Vascular malformation of liver Surgical History Surgical History (Updated 10/20/23 @ 10:45 by Krystal Sher APRN) History of cholecystectomy Family History Family History (Updated 10/20/23 @ 00:16 by Daisha Nicloe PA-C) Other Family history non-contributory Social History Social History (Updated 10/20/23 @ 00:18 by Daisha Nicole PA-C) Social History: Surrogate medical decision maker: Jeaneth Richardson, spouse. Code status: Full code. Smoking status: Former smoker Alcohol intake: never Substance use: never Do You Feel Safe in your Home?: Yes Lack of Transportation: No Lack of Food: Never True Current Housing: I Have Housing Concerned About Future Housing: No Difficulty Paying Gas/Electric Bills: No Difficulty Paying for Meds: No Currently Unemployed: No Education: Decline to Answer Difficulty w/ Childcare or Family Care: No Additional living arrangements comments: Lives with spouse in [place]. Children live close and are around frequently. Additional occupation/education comments: Retired from [employer]. Spiritual care concerns: No Meds Home Medications and Allergies Home Medications Medication Instructions Recorded Confirmed Type amlodipine 5 mg tablet 5 mg PO DAILY 02/26/23 10/19/23 History brimonidine 0.2 %-timolol 0
--- NOTE | 2023-10-21 17:38 | PC.NURSE ---
This patient, Henry Richardson, was transferred to [[address] [place] [address] ] on 10/21/23 at 1739. Personal belongings sent with patient. Report given to [SAMIRA Parry ]. Appropriate documentation sent with patient. Patient alert and oriented. Family aware of transfer.
--- NOTE | 2023-10-21 17:54 | PC.NURSE ---
This patient, Henry Richardson, was received from IMU on 10/21/23 at 1754. Patient/family oriented to unit policies and routines
[2023-10-21] MEDS: SENNA/DOCUSATE SODIUM TABLET 1 TAB PO (20:32)
[2023-10-22] VITALS (9 sets, daily range): BP systolic 109–140; BP diastolic 44–68; PULSE 51–68; RESP 16–20; TEMP 36.6–36.9; O2SAT 98–100
[2023-10-22 05:47] LABS: Basophils Absolute Auto 0.1 K/mm3 (0.0-0.1); Basophils Percent Auto 0.6 % (0.2-1.2); Eosinophils Absolute Auto 0.2 K/mm3 (0-0.3); Eosinophils Percent Auto 2.3 % (0-4.4); Hematocrit 28.6 % (42.0-52.0); Hemoglobin 7.9 g/dL (14.0-18.0); Immature Platelet Fraction Pct 7.5 % (0.9-11.2); Lymphocytes Absolute Auto 1.11 K/mm3 (0.9-3.2); Lymphocytes Percent Auto 11.4 % (18.3-44.2); Mean Corpuscular HGB Conc 27.6 g/dl (32-36); Mean Corpuscular Hemoglobin 19.7 pg (26-34); Mean Corpuscular Volume 71.1 fl (80-100); Mean Platelet Volume 10.1 fl (7.4-10.4); Monocytes Absolute Auto 1.6 K/mm3 (0.1-0.6); Monocytes Percent Auto 16.8 % (2.6-8.5); Neutrophils Absolute Auto 6.6 K/mm3 (1.3-6.7); Neutrophils Percent Auto 67.9 % (45.5-73.1); Nucleated Red Blood Cells Absolute Auto 0.1 K/mm3 (0.0-0.012); Platelet Count Result 188 k/mm3 (150-375); Red Blood Count 4.02 M/mm3 (4.6-6.20); Red Cell Distribution Width 29.2 % (11.5-14.5); White Blood Count 9.8 K/mm3 (4.5-10.0)
[2023-10-22 05:53] LABS: Alanine Aminotransferase 44 U/L (6-50); Alkaline Phosphatase 53 U/L (38-126); Anion Gap 4 mmol/L (8-16); Aspartate Amino Transferase 84 U/L (17-59); Bilirubin,Total 0.5 mg/dL (0.2-1.3); Blood Urea Nitrogen 13 mg/dL (9-20); Calcium 8.9 mg/dL (8.4-10.2); Carbon Dioxide 28 mmol/L (22-30); Chloride 107 mmol/L (98-107); Estimated CRCL calculation 41 ml/min; Estimated Glomerular Filt Rate > 60; Glucose 87 mg/dL (65-110); Potassium 4.1 mmol/L (3.4-5.0); Sodium 139 mmol/L (137-145)
[2023-10-22 07:15] LABS: Procalcitonin 0.2 ng/mL
[2023-10-22 07:21] LABS: Anisocytosis 1+ (NORMAL); Hypochromasia 2+ (NORMAL); Large Platelets Present; Ovalocytes 1+ (NORMAL); Platelet Estimate Adequate (Adequate); Schistocytes Rare (NORMAL); Tear Drop Cells 1+ (NORMAL)
[2023-10-22] MEDS: amLODIPine BESYLATE 5 MG TABLET PO (10:23)
[2023-10-22] MEDS: OLMESARTAN MEDOXOMIL 20 MG TABLET 40 MG PO (10:23)
[2023-10-22] MEDS: polyethylene glycoL 3350 17 GM POWD.PACK PO (10:23)
[2023-10-22] MEDS: FERROUS SULFATE 325 MG TABLET DR PO (10:23)
[2023-10-22] MEDS: hydroCHLOROthiazide 25 MG TABLET PO (10:23)
[2023-10-22] MEDS: BRIMONIDINE TARTRATE 0.2% OP SOLN 5 ML BTL 1 DROP EACH EYE (10:24)
[2023-10-22] MEDS: TIMOLOL MALEATE 0.5% OP SOLN 5 ML BOTTLE 1 DROP EACH EYE (10:24)
[2023-10-22] MEDS: DORZOLAMIDE HCL 2% OPHTH DROPS 1 DROP EACH EYE (10:24)
[2023-10-22] MEDS: LATANOPROST 0.005% OP SOLN 2.5 ML BTL 1 DROP EACH EYE (10:24)
[2023-10-22] MEDS: PANTOPRAZOLE SODIUM IV 40 MG VIAL IV PUSH (10:32)
--- NOTE | 2023-10-22 10:57 | PM.DS ---
DS: Admitting Diagnosis Discharge Date 10/22 Admitting Diagnosis fall DS: Summary Hospital Course Hospital Course: 88-year-old male with history of BPH, glaucoma, hypertension, iron deficiency anemia, osteoarthritis presented after a fall in home. He had been walking and slipped while wearing socks seemingly a mechanical fall. The patient was admitted for anemia. PT OT was ordered however the patient refused to have the possibility to be discharged to SNF. Daughter present in the room during all discussions and she agreed with the patient. Other issues treated during his inpatient stay: 1. Chest wall pain -this was due to mechanical fall. His chest pain resolved and no fractures identified. 2. Iron deficiency anemia -hemoglobin 5.7 on arrival. Stool occult positive. Received 2 units packed red blood cells on 10/19. Hemoglobin sustained between 7.9 and 8.1. He received Venofer and oral iron was started 325 b.i.d.. GI was consulted however the patient and daughter declined any intervention at the moment and want to follow with GI as outpatient. They will also follow with Oncology Hematology. 3. Prostatomegaly. PSA 5.7. They decline intervention at the moment and wants to defer to outpatient workup as well. 4. 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 It appears non problematic and asymptomatic. At any rate the patient and daughter refused further workup for this. 5. 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 They will follow up with vascular as outpatient. 6. Hypertension -controlled 7. Leukocytosis -resolved. Likely reactive. 8. Early onset cellulitis of left forearm -this is likely related to extravasation of peripheral IV. Will go home on 5 days of Augmentin 1000 mg p.o. b.i.d. 9. Constipation -prescribed b.i.d. Senokot 1 tab and MiraLax q.day p.r.n. Patient was full code during his stay. As mentioned above he refused any rehab stay. He does have good support at home and wants to return home. Stable condition to return home on 10/22. Time Spent with Patient Time attestation: Total time spent providing and/or coordinating discharge services: Exam Const: General: cooperative and no acute distress Resp: Effort & Inspection: normal respiratory effort Auscultation: clear to auscultation bilaterally Cardio: Rate: regular rate Rhythm: regular rhythm Heart sounds: S1 normal heart sound present and S2 normal heart sound present GI: GI Palp: No abdominal tenderness Auscultation: normal bowel sounds DS: Data Data Completed and Pending Labs on day of discharge: Labs from last 24 hours 10/22/23 10/21/23 05:00 15:02 WBC 9.8 RBC 4.02 L Hgb 7.9 L Hct 28.6 L MCV 71.1 L MCH 19.7 L MCHC 27.6 L RDW 29.2 H Plt Count 188 MPV 10.1 Immature Gran % (Auto) 1.0 H Neut % (Auto) 67.9 Lymph % (Auto) 11.4 L Collier % (Auto) 16.8 H Eos % (Auto) 2.3 Baso % (Auto) 0.6 Lymph # (Auto) 1.11 Collier # (Auto) 1.6 H Eos # (Auto) 0.2 Baso # (Auto) 0.1 Abs Immat Gran (auto) 0.10 H Absolute Neuts (auto) 6.6 Absolute Nucleated RBC 0.1 H Nucleated RBC % 1.0 H Platelet Estimate Adequate Large Platelets Present % Immature Plt Fraction 7.5 Hypochromasia 2+ Anisocytosis 1+ Tear Drop Cells 1+ Ovalocytes 1+ Schistocytes Rare Sodium 139 Potassium 4.1 Chloride 107 Carbon Dioxide 28 Anion Gap 4 L BUN 13 Creatinine 1.10 Estim Creat Clear Calc 41 Estimated GFR > 60 Glucose 87 Calcium 8.9 Total Bilirubin 0.5 AST 84 H ALT 44 Alkaline Phosphatase 53 Total Protein 6.0 L Albumin 3.0 L Procalcitonin 0.2 Urine Color Yellow Urine Appearance Clear Urine pH 5.5 Ur Specific [place] 1.01
[2023-10-22] MEDS: AMOXICILLIN/CLAVULANATE K 875-125 MG TAB 1 TABLET PO (13:47)
[2023-10-22 23:47] LABS: Methylmalonic Acid 196 nmol/L (87-318)
[2023-10-23 12:21] LABS: Hematocrit 22.3 % (38.5-50.0); Hemoglobin 5.6 g/dL (13.2-17.1); MCH 15.5 pg (27.0-33.0); MCV 61.8 fL (80.0-100.0); RDW 19.7 % (11.0-15.0); Red Blood Cell Count 3.61 Mill/uL (4.20-5.80)
[2023-10-26 12:23] LABS: Soluble Transferrin Receptor 8.48 mg/L (0.76-1.76)
== END 2023-10-22 15:10 | disposition home or self-care (01) ==
LOC: ANHED 13:24 → ANHIMU 16:05 → ANH2MED 10-21 17:49
PROVIDERS: General Practice; Nurse Practitioner Family; Physician Assistant; Student in an Organized Health Care Education/Training Program; Admitting Provider Internal Medicine; Emergency Provider Emergency Medicine; PCP Internal Medicine; Visit Provider Internal Medicine
DX: D50.9 Iron deficiency anemia, unspecified (principal); R07.89 Other chest pain; Q44.79 Other congenital malformations of liver; L03.114 Cellulitis of left upper limb; W01.0XXA Fall on same level from slipping, tripping and stumbling without subsequent striking against object, initial encounter; I70.90 Unspecified atherosclerosis; I10 Essential (primary) hypertension; H40.9 Unspecified glaucoma; N40.0 Benign prostatic hyperplasia without lower urinary tract symptoms; I36.1 Nonrheumatic tricuspid (valve) insufficiency; I35.8 Other nonrheumatic aortic valve disorders; K59.00 Constipation, unspecified
CPT/HCPCS: 36415; 36430; 70450; 71046; 71275; 74174; 74183; 80048; 80053; 80061; 81003; 82274; 82607; 82728; 82746; 83021; 83540; 83550; 83615; 83690; 83735; 83921; 84145; 84153; 84238; 84443; 84484; 85014; 85018; 85025; 85027; 85046; 85055; 85610; 85730; 86850; 86900; 86901; 86923; 93005; 96374; 96375; 96376; 97161; 97165; 99285; A9270; A9577; C8929; C9113; G0378; J1756; J2405; J7050; P9016; Q9957; Q9967

== ENCOUNTER 2023-10-27 14:32 | Outpatient (CLI) | payer MEDICARE, SELFPAY ==
[2023-10-27 14:53] LABS: Hematocrit 31.3 % (42.0-52.0); Hemoglobin 8.9 g/dL (14.0-18.0); Mean Corpuscular HGB Conc 28.4 g/dl (32-36); Mean Corpuscular Hemoglobin 21.1 pg (26-34); Mean Corpuscular Volume 74.3 fl (80-100); Mean Platelet Volume 9.3 fl (7.4-10.4); Platelet Count Result 167 k/mm3 (150-375); Red Blood Count 4.21 M/mm3 (4.6-6.20)
[2023-10-27 18:33] LABS: Iron 94 ug/dL (49-181)
[2023-10-27 18:42] LABS: Percent Iron Saturation 29 % (20-50)
== END 2023-10-27 14:33 | disposition home or self-care (01) ==
LOC: ANHLAB 14:34
PROVIDERS: PCP Internal Medicine; Visit Provider Internal Medicine Hematology & Oncology
DX: D64.9 Anemia, unspecified (principal)
CPT/HCPCS: 36415; 82728; 83540; 83550; 85027

== ENCOUNTER 2025-05-07 00:27 | Emergency (ER) | payer MEDICARE, SELFPAY ==
[2025-05-07 00:28] VITALS: BP 155/67; PULSE 63; RESP 14; TEMP 36.7; O2SAT 97
--- OUTSIDE RECORDS SUMMARY | 2025-05-07 00:29 | XMS_ITS | Encounter Summary ---
Author Organization [facility] Address [address] [place] [address] Phone Care Team Providers Care Research Laboratory Technician Name Role Phone Martin Mclean MD Primary Care Provider [phone] Encounter Details Date Type Department Care Team (Late st Contact Info) Description 08/17/2017 Orders Only [facility] [address] [place] [address] Martin Mclean MD [address] [id number] Social History Tobacco Use Types Packs/Day Years Used Date Smoking Tobacco: Never Assessed Sex and Gender Information Value Date Recorded Sex Assigned at Not on file 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
--- OUTSIDE RECORDS SUMMARY | 2025-05-07 00:29 | XMS_ITS | Clinical Summary ---
Author Organization [facility] Address [address] [place] [address] Phone Care Team Providers Care Fusing Machine Tender Name Role Phone Martin Mclean MD Primary Care Provider [phone] Allergies Active Allergy Reactions Criticality Noted Date Comments Orphenadrine Nausea only Low Medications Combigan 0.2-0.5 % ophthalmic solution INSTILL 1 DROP INTO BOTH EYES TWICE A DAY DIRECTED 1 Active dorzolamide (TRUSOPT) 2 % ophthalmic solution INSTILL 1 DROP INTO THE LEFT EYE TWO TIMES A DAY 1 Active latanoprost (XALATAN) 0.005 % ophthalmic solution INSTILL 1 DROP INTO BOTH EYES IN THE EVENING 1 Active ferrous sulfate 325 mg (65 mg of elemental iron) tablet Take 1 tablet (65 mg of elemental iron total) by mouth 2 (two) times a day 4 Active ascorbic acid, vitamin C, (VITAMIN C) 500 mg CR tablet Take 1 tablet (500 mg total) by mouth daily Active Rhopressa 0.02 % drops Administer 0.05 mL (1 drop total) into both eyes nightly 4 Active vit A/C/E ac/ZnOx/cupric oxide (EYE VITAMIN AND MINERALS ORAL) Take 1 tablet by mouth daily Active olmesartan-hydroc hlorothiazide (BENICAR HCT) 40-25 mg per tabletIndications :Benign hypertension TAKE 1 TABLET BY MOUTH EVERY DAY 90 tablet 1 5 Active amLODIPine (NORVASC) 5 mg tabletIndications :Benign hypertension TAKE 1 TABLET BY MOUTH EVERY DAY 90 tablet 1 5 Active Active Problems Problem Noted Date Diagnosed Date Pancreatic cyst 08/15/2024 Assessment & Plan (08/15/2024 1:18 PM BOARD CERTIFIED BEHAVIORAL ANALYST): 3.5 cm cyst in the head of pancreas. Appears to be increasing in size compared to findings on previous CT scan. Differential diagnosis includes IPMN versus pancreatic cancer. I reviewed the images of the CT scan with the patient and his daughter in the office. We discussed the risks and benefits of diagnostic procedures such as endoscopic ultrasound and ultimately the definitive therapy of possible pancreatic cancer (Whipple's procedure). The patient does not desire to have endoscopy or surgery regardless of the findings. I think this is reasonable in view of his advanced age and comorbidities. The patient's daughter also agreed with the position. He also declines to have surveillance studies such as MRI. He was advised to call the office if he changes his mind about possible surveillance. 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 Will repeat CBC in 2 months. Patient denies in his blood in his stool has a good appetite and has no abdominal discomfort.. Was found to have colon cancer November of 2023 Malignant neoplasm of colon 12/23/2023 Assessment & Plan (08/09/2024 3:56 PM BOARD CERTIFIED BEHAVIORAL ANALYST): Colorectal surgeon notes reviewed from visit in April Dr. Orr CT scan also reviewed from July 16, 2024. Family made me aware of this appointment coming up in the next week regarding further evaluation. Impacted cerumen of left ear 09/12/2023 Assessment & Plan (09/12/2023 3:55 PM BOARD CERTIFIED BEHAVIORAL ANALYST): Unable to get all the wax out of left ear patient advised to use Debrox otic drops a follow-up appointment Bradycardia 09/06/2023 Assessment & Plan (09/06/2023 12:12 PM BOARD CERTIFIED BEHAVIORAL ANALYST): See above documented HPI. Patient is having some episodes of low heart rate and chest discomfort since having covid on 08/22. However, HR has been taken daily and is 58-64. This is normal for him. BP has been normal for him. No acute findings on exam today, patient is not in acute distress EKG today shows sinus rhythm w/ right bundle branch block. A documented EKG in record from 2005 also noted a Right BBB. We will order a 7-day cardiac event monitor. Dr CRAWFORD consulted with patient and family Immunization due 06/18/2018 Assessment & Plan (01/31/2025 11:41 AM CDT): Immunization recommended on multiple occasions no follow through thus far. Referring to shingles vaccine. Assessment & Plan (11/24/2019 2:05 PM BOARD CERTIFIED BEHAVIORAL ANALYST): Patient given information discussed with he and his family regarding the Tdap and shingles vaccine. He is given a handout made aware that this shots are available through his pharmacy. Assessment & Plan (06/18/2018 6:23 PM CDT): Patient completed his pneumonia vaccine he has today. He is given written information regarding adult immunization is also given a both of his daughters who are very much involved with self-care this booklet covers adult immunizations with respect to of influenza Zostavax/of shingles immunization as well as on tetanus. They understand we do not give shingles in tetanus immunization this facility. He also understands get this done through pharmacy. Medicare annual wellness visit, subsequent 11/13 Assessment & Plan (08/09/2024 4:20 PM BOARD CERTIFIED BEHAVIORAL ANALYST): History and physical completed patient's health risk assessment health maintenance reviewed and addressed. Patient's primary health concerns he had right colectomy in January 15, 2024 secondary to colon cancer no metastasis found. He has other concerns primary bilateral osteoarthritis involving his knees. Assessment & Plan (07/20/2022 4:18 PM CDT): History and physical completed patient's health risk assessment health maintenance reviewed in addressed. . Patient did go to gait training physical therapy since his last visit is some improvement was noted. Was discharged home from physical therapy a maximize his progression advised to take physical therapy at home. Assessment & Plan (07/12/2021 6:21 PM CDT): And physical completed patient's health risk assessment health maintenance reviewed in addressed. Patient has not had his shingles vaccine or Tdap. COVID booster vaccine discussed and advised. I support a booster. Assessment & Plan (11/13/2017 2:20 PM BOARD CERTIFIED BEHAVIORAL ANALYST): Patient's annual exam he is doing very well he is 82 years old absolutely no dementia present. 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 He is here with 1 of his daughters and his . He ambulates well he is in no distress expresses his concerns and health status without difficulty. Exam is unremarkable. Will get a CMP fasting lipid profile and CBC parts physical exam. His concurrent hypertension and osteoarthritis. Osteoarthritis of knee 02/09/2014 Overview (01/01/2017): Osteoarthritis of both knees Assessment & Plan (01/31/2025 11:40 AM CDT): Lateral knee pain secondary to advanced osteoarthritis right knee worse than left patient continues to ambulate as well as use a walker on p.r.n. basis. He is under care of orthopedics as previous stated not a surgical candidate given his advanced age. Assessment & Plan (08/09/2024 3:52 PM BOARD CERTIFIED BEHAVIORAL ANALYST): Patient receives injections in his knees by Orthopedic surgery every few months. It does benefit him for several weeks to maybe 2-1/2 months.. 89 years old he is not a candidate for total knee replacement. Patient's family is asking for Rollator walker. Has a walker he sometimes become fatigued in using the walker would like to be able to sit down/rest. Assessment & Plan (03/07/2024 5:59 PM CDT): Patient has continued to use a knee brace on right knee which bothers him the most some days he does not require knee brace he has a chronic pain level for least 3 over 10. Walks with a walker or cane depending on degree of discomfort he has Assessment & Plan (05/19/2023 3:08 PM CDT): Patient [facility] orthopedic [facility] given knee injections that did help him for brief period to time he has advanced xekk-lo-ldea arthritis on x-ray. Advised he was not a good surgical candidate given his age. I am going to give this gentleman trial of Celebrex 200 mg daily he will follow-up with the orthopedic surgeon next few weeks.. Assessment & Plan (01/16/2023 5:22 PM CDT): Patient's right knee pain is getting progressively worse he is having more stiffness he has been maintain on arthritis Tylenol 2 a day is no longer working referring him to Dr. Will Miranda orthopedic surgeon [place], [place] patient potentially may benefit from injections. Patient is not in favor surgery. Assessment & Plan (07/20/2022 4:19 PM CDT): Increase in pain in his knees secondary to arthritis Assessment & Plan (07/12/2021 6:22 PM CDT): Very low change with respect his knee pain right knee is worse than left patient ambulates very well for his age. No new recommendations. Assessment & Plan (01/03/2021 6:01 PM CDT): No significant change in patient's knee left knee hurts him more than right no detectable limp with walking. Lot of crepitation on range of motion.. No change in therapy Assessment & Plan (11/24/2019 2:04 PM BOARD CERTIFIED BEHAVIORAL ANALYST): Osteoarthritis both knees right knee worse than left. Patient's walking slightly slower still very active. Patient is a lives with file was in with tilt of his right knee slight limp pain level 2/10. Advice she use Tylenol as needed remain active encouraged patient walks faster and use cane less often. Assessment & Plan (05/19/2019 12:39 PM CDT): Patient's of osteoarthritis involves both knees and he takes meloxicam on a p.r.n. Basis he walks with a cane as a precautionary for to keep from falling. No change in therapy no indications for x-rays. Assessment & Plan (12/17/2018 5:08 PM CDT): Patient's less symptomatic is osteoarthritis improved reasons unclear he does use a cane he ambulates is no limitations for his routine activities. Assessment & Plan (06/18/2018 6:21 PM CDT): Patient has some arthritis in his left knee was placed on of meloxicam 7.5 mg per day. Has helped some but not to satisfactory level. Patient for have his meloxicam increased is 15 mg per day I re-emphasized him to make sure he takes it with food. Patient's chart is listed that he has a allergy of meloxicam this is not the case because he is taking the medicine without any difficulties. Examination shows some crepitation over his knees no deformity no redness no swelling. Range of motions very good. Patient is not a very good historian but he does describe some components of a possible leg cramp med had times in the left leg. Assessment & Plan (05/14/2018 12:57 PM CDT): Patient informs me his arthritis in knees have improved. Exam some mild crepitation the knees nothing else is present. Assessment & Plan (11/13/2017 2:21 PM BOARD CERTIFIED BEHAVIORAL ANALYST): In of Spite very cold weather patient's arthritis doing very well at this point some crepitation of his knees minor pain no changes ability walker activities. Benign hypertension 10/12/1989 Overview (12/30/2016): Hypertension, benign Assessment & Plan (01/31/2025 11:39 AM CDT): Hypertension remains well controlled symptoms referable to hypertension present medications amlodipine 5 mg Benicar 40/251 tablet daily patient is tolerating medications. Assessment & Plan (08/09/2024 3:53 PM BOARD CERTIFIED BEHAVIORAL ANALYST): At goal patient is tolerating medications. No symptoms referable to his hypertension. Continue present therapy Benicar for 40/12.5 amlodipine 5 mg daily Assessment & Plan (03/07/2024 5:57 PM CDT): Hypertension very well patient is tolerating his medications no change in therapy. He has no symptoms referable to his hypertension. He is on Benicar 40/12.5 once daily amlodipine 5 mg daily. Assessment & Plan (05/19/2023 3:03 PM CDT): Blood pressure remains very good patient is tolerating medication. Assessment & Plan (01/16/2023 5:42 PM CDT): Patient's blood pressure remains well controlled patient is tolerating medications no change in therapy Assessment & Plan (07/20/2022 4:18 PM CDT): Blood pressure is very well controlled continue present therapy Assessment & Plan (01/09/2022 5:11 PM CDT): Hypertension well controlled patient is tolerating medications. No change in therapy Assessment & Plan (11/29/2021 4:53 PM BOARD CERTIFIED BEHAVIORAL ANALYST): Blood pressure slightly elevated today will make no changes in medications a follow-up appointment within a few weeks will continue to monitor. Assessment & Plan (07/12/2021 6:22 PM CDT): Blood pressure remains well controlled patient is tolerating medications no change in therapy Assessment & Plan (01/03/2021 6:00 PM CDT): Blood pressure well controlled no symptoms referable to his hypertension patient is tolerating medicines. No change in therapy. Assessment & Plan (05/24/2020 1:08 PM CDT): Patient has blood pressure is doing well he is tolerating medications no change in therapy. Assessment & Plan (11/24/2019 2:02 PM BOARD CERTIFIED BEHAVIORAL ANALYST): Blood pressure well controlled patient tolerating medications. No symptoms referable to hypertension. No change in therapy at this time. Assessment & Plan (12/17/2018 5:07 PM CDT): Patient's blood pressure he is tolerating medications without any complications plans continue present medication. Assessment & Plan (05/13/2018 11:59 AM CDT): . Blood pressure elevated today MN add amlodipine 2.5 mg to his present regimen. Assessment & Plan (11/13/2017 2:18 PM BOARD CERTIFIED BEHAVIORAL ANALYST): Patient's blood pressure is 132/100. He feels well no symptoms referable to his hypertension. Advised patient to get at least 20 readings of his blood pressure at home write down on a blood pressure log sheet provided and mail results to me. He is to do this in the next 2 weeks. At this time no change in his medication he is on Benicar/HCTZ 40/25 generic. See him back in about 4 months providing his blood pressure comes down. I am going to get CMP on this gentleman today and lipid profile of not seen him for least 6 months or longer. CC also included Resolved Problems Problem Noted Date Diagnosed Date Resolved Date Colon cancer 01/10/2024 08/09/2024 Assessment & Plan (03/07/2024 5:59 PM CDT): Patient had a colon resection January 10 2024 no metastasis he is under surveillance has a follow-up visit with on surgery in April. Will check a CMP and CBC prior to next visit with Colon surgeon. Blood in stool 12/06/2023 03/07/2024 Abnormal gait 11/29/2021 08/09/2024 Assessment & Plan (07/20/2022 4:19 PM CDT): Patient did follow through going physical therapy for gait training. Maximize therapy available was advised to do some exercises at home gait is slow is a little stooped when he walks all secondary to advanced age in arthritis. Uses cane on a p.r.n. basis Assessment & Plan (01/09/2022 5:11 PM CDT): Patient doing some back exercises and a back support is helping him he has contacted physical therapy but not had an appointment yet. Daughter is with him I emphasized very strongly that he get a evaluation physical therapy regarding gait evaluation.. Patient walks with a scan walks very slowly often times looking down. Assessment & Plan (11/29/2021 4:52 PM BOARD CERTIFIED BEHAVIORAL ANALYST): This patient's gait is change since her last saw him a few months ago. Complains of pain low back area over the midline bilaterally he recognizes he is not stand up straight and he is walking greater caution. Is some pain and stiffness going from sitting to standing as well as walking.. No pain over the midline hip pain pain . Patient has good flexion of his hips. It chronic knee pain unchanged. Recommend this gentleman see physical therapy for gait evaluation and relief of his low back pain. Acute neck pain 05/24/2020 08/09/2024 Assessment & Plan (09/12/2023 3:54 PM BOARD CERTIFIED BEHAVIORAL ANALYST): Patient had pain over left side of his neck was up above his ear pain is reproducible on palpating over posterior neck top of scalp. Also reproducible on turning his neck this is a muscle skeletal pain patient's advised his daughter is with him Nai. We will treat this as a muscle skeletal injury moist heat to the neck will help relax the muscle patient take arthritis Tylenol topical muscle skeletal medications may be of benefit. Has no neuromuscular compromise Assessment & Plan (05/24/2020 1:17 PM CDT): Approximately 1 month ago his car door slammed on his truck and long side of his face and neck.. Did not break to scan he had a sharp pain. Since that time he has continued to have some pain over his neck. He no longer has pain over the mandible.. He is concerned because it is taking so long resolved. At 1 point he had some pain with raising his arm over his head this is no longer the case. Patient is a little bit of pain when turning his neck to the left some slight pain on palpating over his neck on the posterior the left side.. Patient advised anticipate complete resolution. He has been using more seated area in a pillow for his neck means uncomfortable no further recommendations x-rays not clinically indicated. Pain of toe 05/24/2020 01/03/2021 Assessment & Plan (05/24/2020 1:17 PM CDT): Patient has some thick nails any has some vague pain in his toes this would be best managed by podiatry referral is made. Acute leg pain, left 05/14/2018 021 Assessment & Plan (05/14/2018 12:57 PM CDT): Patient developed acute left leg pain about 3 weeks ago he was on the floor doing some cleaning up around some furniture when he got up he noticed pain is left leg is not resolved at this time. No Deformities , redness or swelling some pain over palpating over left leg patient has full range of motion of left leg with some degree of discomfort. He has no pain sitting still walking. Anticipate this resolved this is muscle strain given his age 83 recommend arthritis Tylenol twice a day for the next 7-14 days if does not resolve his get back in contact me. He has a follow-up appointment 1 month regarding his blood pressure. Hypertension, essential 11/13/201710/29 Assessment & Plan (05/19/2019 12:38 PM CDT): Blood pressure is well controlled patient is tolerating medication no change in therapy. Patient renal functions excellent for an 84-year-old gentleman. Assessment & Plan (06/18/2018 6:21 PM CDT): Hypertension is unchanged. Continue current treatment regimen. Dietary sodium restriction. Continue current medications. Blood pressure will be reassessed at the next regular appointment. Assessment & Plan (05/14/2018 12:55 PM CDT): Hypertension is worsening. Dietary sodium restriction. Regular aerobic exercise. Medication changes per orders. Blood pressure will be reassessed at the next regular appointment. Patient's blood pressure not control am adding amlodipine 2.5 mg to his present medication. I will see him back and 1 month. Immunizations Immunization Administration Dates Next Due Influenza, Quadrivalent, Hig h Dose, Preservative Free, Intrr 07/28/2023,07/17/2022,07/11/2021,07/17 Influenza, Split 06/20/2013 Influenza, Trivalent, High D ose, Split, Preservative Free, Intramuscular 08/08/2024,07/06/2017,07/24/2016,06/25,07/19/2014 Pfizer SARS-CoV-2 Monovalent Vaccination (12+ Yrs) PURPLE 12/27/2020,12/06/2020 Pneumococcal Conjugate PCV 13 03/24/2016 Pneumococcal Polysaccharide PPV23 06/17/2018 Surgical History Surgery Date Site/Laterality Comments COLONOSCOPY CHOLECYSTECTOMY CATARACT EXTRACTION, BILATERAL Medical History Medical History Date Comments Hypertension Colon cancer (HCC) Anemia Arthritis Cataract Glaucoma History of transfusion 10/19/2023 [facility] Family History Medical History Relation Name Comments No Known Problems Father Early Mother heart attack Heart attack Mother Relation Name Status Comments Father Mother Social History Tobacco Use Types Packs/Day Years Used Date Smoking Tobacco: Former Smokeless Tobacco: Never Tobacco Cessation:Counseling Given: Not Answered Comments:Quit 1955 [facility] Utilities Answer Date Recorded In the past 12 months has [employer], gas, oil, or water [facility] threatened to shut off services in your home? No 01/13/2024 Social Connection and Isolation Panel Answer Date Recorded In a typical week, how many times do you talk on the phone with family, friends, or neighbors? More than three times a week 01/13/2024 How often do you get togethe r with friends or relatives? More than three times a week 01/13/2024 How often do you attend chur ch or denominational services? More than 4 times per year 01/13/2024 Do you belong to any clubs o r organizations such as adventist groups, unions, fraternal or athletic groups, or school groups? No 01/13/2024 How often do you attend meet ings of the clubs or organizations you belong to? Never 01/13/2024 Are you , , di vorced, , never , or living with a partner? 01/13/2024 AUDIT-C Answer Date Recorded Frequency of Alcohol Consumption Not on file 01/06/2024 Q2: How many drinks containi ng alcohol do you have on a typical day when you are drinking? Patient does not drink Frequency of Binge Drinking Not on file 12/26 Overall Financial Resource Strain (CARDIA) Answe r Date Recorded How hard is it for you to pa y for the very basics like food, housing, medical care, and heating? Not hard at all 01/13/2024 PHQ-2 Answer Date Recorded PHQ-2 Total Score (If total score is 3 or more points, staff should administer the PHQ-9) 0 08/08/2024 Hunger Vital Sign Answer Date Recorded Within the past 12 months, y ou worried that your food would run out before you got the money to buy more. Never true 01/13/20 24 Within the past 12 months, t he food you bought just didn't last and you didn't have money to get more. Never true 01/13/2024 PRAPARE - Transportation Answer Date Re corded In the past 12 months, has l ack of transportation kept you from medical appointments or from getting medications? No 12/26 In the past 12 months, has l ack of transportation kept you from meetings, work, or from getting things needed for daily living? No 01/13/2024 Housing Stability Vital Sign Answer Norberto e Recorded In the last 12 months, was t here a time when you were not able to pay the mortgage or rent on time? No 01/13/2024 In the last 12 months, how many places have you lived? 1 01/13/2024 In the last 12 months, was t here a time when you did not have a steady place to sleep or slept in a retirement (including now)? No 01/13/2024 Personal Safety Answer Date Recorded Have you ever been in or are you currently in a harmful physical or emotional relationship or is someone making you feel afraid or unsafe? Denies 01/10/2024 Sex and Gender Information Value Date Recorded Sex Assigned at Not on file Legal Sex Male 7:26 PM BOARD CERTIFIED BEHAVIORAL ANALYST Gender Identity Not on file Sexual Orientation Not on file Obstetrics History Last Filed Vital Signs Vital Sign Reading Time Taken Comments Blood Pressure 124/68 01/30/2025 2:39 PM CDT Pulse 66 01/30/2025 2:39 PM CDT Temperature 36.6 C (97.8 F) 01/30/2025 2:39 PM CDT Respiratory Rate 16 01/30/2025 2:39 PM CDT Oxygen Saturation 97% 01/30/2025 2:39 PM CDT Inhaled Oxygen Concentration - - Weight 81.8 kg (180 lb 6.4 oz) 01/30/2025 2:39 P M CDT Height 165.1 cm (5' 5) 01/30/2025 2:39 PM CDT Body Mass Index 30.02 01/30/2025 2:39 PM CDT Plan of Treatment Health Maintenance Due Date Last Done Comments DTaP/Tdap/Td Vaccine (1 - Tdap) 02/24/1946 Zoster Vaccine (1 of 2) 02/24/1986 Covid-19 Vaccine (5 - 2023-2 5 season) 2024 04/24/2022, 07/23/2021, 12/27/2020, Additional history exists Influenza Vaccine (#1) 2025 , 07/28/2023, 07/17/2022, Additional history exists Depression Screening 08/08/2025 08/08/2024, 07/11/2021, 05/24/2020, Additional history exists Fall Risk Assessment 08/08/2025 08/08/2024, 01/16/2024, 07/11/2021, Additional history exists Well Visit 65+ 08/08/2025 08/08/2024, 06/28, 07/11/2021, Additional history exists Pneumococcal vaccine 65+ Completed 06/17/2018, 02/26 Hepatitis B Screening Discontinued Insurance [facility] MEDICARE ADVANTAGE UHC MEDICARE ADVANTAGE UHC MEDICARE ADVANTAGE UHC MEDICARE ADVANTAGE Advance Directives For more information, please contact: [phone] * Full Code (Latest Code Status on File) Date Activated Date Inactivated Comments 01/10/2024 6:17 PM 01/16/2024 7:40 PM Care Teams Fusing Machine Tender Relationship Specialty Start Date End Date Martin Mclean MD PCP - General 12/25/16
--- OUTSIDE RECORDS SUMMARY | 2025-05-07 00:29 | XMS_ITS | Encounter Summary ---
Author Organization [facility] Address [address] [place] [address] Phone Care Team Providers Care Lpn Or Medical Assistant Name Role Phone Martin Mclean MD Primary Care Provider [phone]- [phone] Encounter Details Date Type Department Care Team (Late st Contact Info) Description 11/12/2017 Orders Only [facility] ProviderNadia MD [address] [place] [address] Social History Tobacco Use Types Packs/Day Years Used Date Smoking Tobacco: Former Smokeless Tobacco: Never Sex and Gender Information Value Date Recorded Sex Assigned at Not on file Legal Sex Male 7:26 PM PROMOTION PRODUCER Gender Identity Not on file Sexual Orientation Not on file documented as of this encounter Plan of Treatment Not on file documented as of this encounter Procedures Procedure Name Priority Date/Time Associated Diagnosis Comments DISCHARGE LABORATORY CUMULATIVE REPORT 11/12/2017 12:00 AM PROMOTION PRODUCER documented in this encounter Results * DISCHARGE LABORATORY CUMULATIVE REPORT (11/12/2017 12:00 AM PROMOTION PRODUCER) Narrative 11/12/2017 12:00 AM PROMOTION PRODUCER Ordered by an unspecified provider. Historical Provider LAB BLOOD ORDERABLES Michelle l Result documented in this encounter Visit Diagnoses Not on filedocumented in this encounter Care Teams Lpn Or Medical Assistant Relationship Specialty Start Date End Date Martin Mclean MD PCP - General 12/25/16 documented as of this encounter
--- OUTSIDE RECORDS SUMMARY | 2025-05-07 00:29 | XMS_ITS | Clinical Summary ---
Author Organization [facility] Address [address] [place] [address] Care Team Providers Care Adjunct Professor Of U.S. History Name Role Phone Martin Mclean MD Primary Care Provider [phone] Allergies Active Allergy Reactions Criticality Noted Date Comments Orphenadrine Other (See Comments) 10/27/2023 Medications olmesartan-hydr oCHLOROthiazide (BENICAR-HCT) 40-25 mg tablet Take 1 Tablet by mouth daily. 08/31/2023 Active amLODIPine (NORVASC) 5 mg tablet Take 1 Tablet by mouth daily. 06/02/2023 Active latanoprost (XALATAN) 0.005 % solution INSTILL 1 DROP INTO BOTH EYES IN THE EVENING 12/05/2020 Active dorzolamide (TRUSOPT) 2 % solution 1 Drop 3 times daily. Active brimonidine-john oloL (COMBIGAN) 0.2-0.5 % solution 1 Drop every 12 hours. Active amoxicillin-cla vulanate (AUGMENTIN) 875-125 mg tablet Take by mouth every 12 hours. Active ferrous sulfate 325 mg (65 mg iron) tablet Take 325 mg by mouth daily. Active sennosides-docu sate sodium (SENNA-S) 8.6-50 mg tablet Take 1 Tablet by mouth daily. Active Active Problems No known active problems Family History Medical History Relation Name Comments Throat Cancer Father Relation Name Status Comments Brother 1 Alive Brother 2 Alive Daughter 1 Alive Daughter 2 Alive Daughter 3 Alive Daughter 4 Alive Daughter 5 Alive Daughter 6 Alive Father Mother Sister Alive Son 1 Alive Son 2 Alive Son 3 Alive Social History Tobacco Use Types Packs/Day Years Used Date Smoking Tobacco: Never Smokeless Tobacco: Never Tobacco Cessation:Counseling Given: Not Answered Alcohol Use Standard Drinks/Week Comments Never 0 (1 standard drink = 0.6 oz pur e alcohol) Sex and Gender Information Value Date Recorded Sex Assigned at Not on file Legal Sex Male 8:07 AM LEARNING AND DEVELOPMENT ADMINISTRATOR Gender Identity Not on file Sexual Orientation Not on file Last Filed Vital Signs Vital Sign Reading Time Taken Comments Blood Pressure 131/65 10/27/2023 1:41 PM LEARNING AND DEVELOPMENT ADMINISTRATOR Pulse 63 10/27/2023 1:41 PM LEARNING AND DEVELOPMENT ADMINISTRATOR Temperature 36.4 C (97.6 F) 10/27/2023 1:41 PM LEARNING AND DEVELOPMENT ADMINISTRATOR Respiratory Rate 12 10/27/2023 1:41 PM LEARNING AND DEVELOPMENT ADMINISTRATOR Oxygen Saturation 97% 10/27/2023 1:41 PM LEARNING AND DEVELOPMENT ADMINISTRATOR Inhaled Oxygen Concentration - - Weight 75.8 kg (167 lb) 10/27/2023 1:41 PM LEARNING AND DEVELOPMENT ADMINISTRATOR Height - - Body Mass Index - - Plan of Treatment Health Maintenance Due Date Last Done Comments DTAP/TDAP/TD VACCINES (1 - Tdap) [birth year]24/1954 ZOSTER VACCINE (1 of 2) 02/24/1986 RSV VACCINE (60+ or ) (1 - 1-dose 75+ series) 02/24/2011 COVID-19 Vaccine (3 - 2023-2 5 season) 2024 12/27/2020, 12/06/2020 INFLUENZA VACCINE (#1) 2025 , 07/17/2022, 07/11/2021, Additional history exists PNEUMOCOCCAL VACCINE 50+ YEARS Completed 06/17/2018 , 03/24/2016 Insurance [facility] [id number] Care Teams Adjunct Professor Of U.S. History Relationship Specialty Start Date End Date Martin Mclean MD [address] [place] [phone] PCP - General Internal Medicine 10/27/23
--- OUTSIDE RECORDS SUMMARY | 2025-05-07 00:29 | XMS_ITS | Encounter Summary ---
Author Organization [facility] Address [address] [place] [address] Phone Care Team Providers Care Flue Dust Laborer Name Role Phone Martin Mclean MD Primary Care Provider [phone] Encounter Details Date Type Department Care Team (Late st Contact Info) Description 08/10/2017 Orders Only [facility] [address] [place] [address] Martin Mclean MD [address] [address] Unspecified glaucoma(365.9) (Primary Dx) Social History Tobacco Use Types Packs/Day Years Used Date Smoking Tobacco: Never Assessed Sex and Gender Information Value Date Recorded Sex Assigned at Not on file Legal Sex Male 7:26 PM CLINICAL PHARMACY MANAGER Gender Identity Not on file Sexual Orientation Not on file documented as of this encounter Plan of Treatment Not on file documented as of this encounter Visit Diagnoses Diagnosis Unspecified glaucoma(365.9)- Primary Unspecified glaucoma documented in this encounter Care Teams Flue Dust Laborer Relationship Specialty Start Date End Date Martin Mclean MD PCP - General 12/25/16 documented as of this encounter
[2025-05-07 00:56] VITALS: BP 159/79; PULSE 62; RESP 20; O2SAT 98
--- OUTSIDE RECORDS SUMMARY | 2025-05-07 02:13 | XMS_ITS | Clinical Summary ---
Author Organization [facility] Address [address] [facility] [address] Care Team Providers Care Interlocker Name Role Phone Martin Mclean MD Primary Care Provider [phone] Allergies Active Allergy Reactions Criticality Noted Date [...] on file Legal Sex Male 8:07 AM DEVELOPER PROVER UPHOLSTERING Gender Identity Not on file Sexual Orientation Not on file Last Filed Vital Signs Vital Sign Reading Time Taken Comments Blood Pressure 131/65 10/27/2023 1:41 PM DEVELOPER PROVER UPHOLSTERING Pulse 63 10/27/2023 1:41 PM DEVELOPER PROVER UPHOLSTERING Temperature 36.4 C (97.6 F) 10/27/2023 1:41 PM DEVELOPER PROVER UPHOLSTERING Respiratory Rate 12 10/27/2023 1:41 PM DEVELOPER PROVER UPHOLSTERING Oxygen Saturation 97% 10/27/2023 1:41 PM DEVELOPER PROVER UPHOLSTERING Inhaled Oxygen Concentration - - Weight 75.8 kg (167 lb) 10/27/2023 1:41 PM DEVELOPER PROVER UPHOLSTERING Height - - Body Mass Index - [...] 50+ YEARS Completed 06/17/2018 , 03/24/2016 Insurance [facility] [id number] Care Teams Interlocker Relationship Specialty Start Date End Date Martin Mclean MD [address] [place] [phone] PCP - General Internal Medicine 10/27/23
--- OUTSIDE RECORDS SUMMARY | 2025-05-07 02:13 | XMS_ITS | Encounter Summary ---
Author Organization [facility] Address [address] [place] [address] Phone Care Team Providers Care Oil Treater Name Role Phone Martin Mclean MD Primary Care Provider [phone] Encounter Details Date Type Department Care Team (Late st Contact Info) Description 11/12/2017 Orders Only [facility] ProviderNadia MD [address] [place] [address] Social History Tobacco Use Types Packs/Day Years Used Date Smoking Tobacco: Former Smokeless Tobacco: Never Sex and Gender Information Value Date Recorded Sex Assigned at Not on file Legal Sex Male 7:26 PM DIRECTOR OF REVENUE Gender Identity Not on file Sexual Orientation Not on file documented as of this encounter Plan of Treatment Not on file documented as of this encounter Procedures Procedure Name Priority Date/Time Associated Diagnosis Comments DISCHARGE LABORATORY CUMULATIVE REPORT 11/12/2017 12:00 AM DIRECTOR OF REVENUE documented in this encounter Results * DISCHARGE LABORATORY CUMULATIVE REPORT (11/12/2017 12:00 AM DIRECTOR OF REVENUE) Narrative 11/12/2017 12:00 AM DIRECTOR OF REVENUE Ordered by an unspecified provider. Historical Provider LAB BLOOD ORDERABLES Michelle l Result documented in this encounter Visit Diagnoses Not on filedocumented in this encounter Care Teams Oil Treater Relationship Specialty Start Date End Date Martin Mclean MD PCP - General 12/25/16 documented as of this encounter
--- OUTSIDE RECORDS SUMMARY | 2025-05-07 02:13 | XMS_ITS | Encounter Summary ---
Author Organization [facility] Address [address] [place] [address] Phone Care Team Providers Care Tool Procurement Coordinator Name Role Phone Martin Mclean MD Primary Care Provider [phone] Encounter Details Date Type Department Care Team (Late st Contact Info) Description 08/10/2017 Orders Only [facility] [address] [place] [address] Martin Mclean MD [address] [address] Unspecified glaucoma(365.9) (Primary Dx) Social History Tobacco Use Types Packs/Day Years Used Date Smoking Tobacco: Never Assessed Sex and Gender Information Value Date Recorded Sex Assigned at Not on file Legal Sex Male 7:26 PM CLINICAL CYTOGENETICS DIRECTOR Gender Identity Not on file Sexual Orientation Not on file documented as of this encounter Plan of Treatment Not on file documented as of this encounter Visit Diagnoses Diagnosis Unspecified glaucoma(365.9)- Primary Unspecified glaucoma documented in this encounter Care Teams Tool Procurement Coordinator Relationship Specialty Start Date End Date Martin Mclean MD PCP - General 12/25/16 documented as of this encounter
--- OUTSIDE RECORDS SUMMARY | 2025-05-07 02:13 | XMS_ITS | Encounter Summary ---
Author Organization [facility] Address [address] [place] [address] Phone Care Team Providers Care Humanities Division Chair Name Role Phone Martin Mclean MD Primary Care Provider [phone]- [phone] Encounter Details Date Type Department Care Team (Late st Contact Info) Description 08/17/2017 Orders Only [facility] [address] [place] [address] Martin Mclean MD [address] [id number] Social History Tobacco Use Types Packs/Day Years Used Date Smoking Tobacco: Never Assessed Sex and Gender Information Value Date Recorded Sex Assigned at Not on file Legal Sex Male 7:26 PM PAINT PROCESS ENGINEER Gender Identity Not on file Sexual Orientation Not on file documented as of this encounter Plan of Treatment Not on file documented as of this encounter Visit Diagnoses Not on filedocumented in this encounter Care Teams Humanities Division Chair Relationship Specialty Start Date End Date Martin Mclean MD PCP - General 12/25/16 documented as of this encounter
--- OUTSIDE RECORDS SUMMARY | 2025-05-07 02:13 | XMS_ITS | Clinical Summary ---
Author Organization [facility] Address [address] [place] [address] Phone Care Team Providers Care Torch Straightener And Heater Name Role Phone Martin Mclean MD Primary Care Provider [phone] Allergies Active Allergy Reactions Criticality Noted Date [...] 08/15/2024 Assessment & Plan (08/15/2024 1:18 PM LINE SERVICE SUPERVISOR): 3.5 cm cyst in the head of [...] 01/11/2024 Assessment & Plan (08/09/2024 4:03 PM LINE SERVICE SUPERVISOR): Patient remains under care of Ophthalmology meds [...] 12/23/2023 Assessment & Plan (08/09/2024 3:56 PM LINE SERVICE SUPERVISOR): Colorectal surgeon notes reviewed from visit in April Dr. Orr CT scan also reviewed from July 16, 2024. Family made me aware of this appointment coming up in the next week regarding further evaluation. Impacted cerumen of left ear 09/12/2023 Assessment & Plan (09/12/2023 3:55 PM LINE SERVICE SUPERVISOR): Unable to get all the wax out of left ear patient advised to use Debrox otic drops a follow-up appointment Bradycardia 09/06/2023 Assessment & Plan (09/06/2023 12:12 PM LINE SERVICE SUPERVISOR): See above documented HPI. Patient is having [...] vaccine. Assessment & Plan (11/24/2019 2:05 PM LINE SERVICE SUPERVISOR): Patient given information discussed with he and [...] 11/13 Assessment & Plan (08/09/2024 4:20 PM LINE SERVICE SUPERVISOR): History and physical completed patient's health risk [...] booster. Assessment & Plan (11/13/2017 2:20 PM LINE SERVICE SUPERVISOR): Patient's annual exam he is doing very well he is 82 years old absolutely no dementia present. 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 He is here with 1 of his [...] age. Assessment & Plan (08/09/2024 3:52 PM LINE SERVICE SUPERVISOR): Patient receives injections in his knees by [...] 3:08 PM CDT): Patient saw orthopedic surgeon [place]/[facility] given knee injections that did help him for brief period to time he has advanced [id number] arthritis on x-ray. Advised he was not [...] him to Dr. Will Miranda orthopedic surgeon [place], [place] patient potentially may benefit from injections. [...] therapy Assessment & Plan (11/24/2019 2:04 PM LINE SERVICE SUPERVISOR): Osteoarthritis both knees right knee worse than [...] present. Assessment & Plan (11/13/2017 2:21 PM LINE SERVICE SUPERVISOR): In of Spite very cold weather patient's [...] medications. Assessment & Plan (08/09/2024 3:53 PM LINE SERVICE SUPERVISOR): At goal patient is tolerating medications. No [...] therapy Assessment & Plan (11/29/2021 4:53 PM LINE SERVICE SUPERVISOR): Blood pressure slightly elevated today will make [...] therapy. Assessment & Plan (11/24/2019 2:02 PM LINE SERVICE SUPERVISOR): Blood pressure well controlled patient tolerating medications. [...] regimen. Assessment & Plan (11/13/2017 2:18 PM LINE SERVICE SUPERVISOR): Patient's blood pressure is 132/100. He feels [...] down. Assessment & Plan (11/29/2021 4:52 PM LINE SERVICE SUPERVISOR): This patient's gait is change since her [...] 08/09/2024 Assessment & Plan (09/12/2023 3:54 PM LINE SERVICE SUPERVISOR): Patient had pain over left side of [...] Arthritis Cataract Glaucoma History of transfusion 10/19/2023 [facility] Family History Medical History Relation Name Comments No Known Problems Father Early Mother heart attack Heart attack Mother Relation Name Status Comments Father Mother Social History Tobacco Use Types Packs/Day Years Used Date Smoking Tobacco: Former Smokeless Tobacco: Never Tobacco Cessation:Counseling Given: Not Answered Comments:Quit 1955 [facility] Utilities Answer Date Recorded In the past 12 months has [employer], gas, oil, or water [employer] threatened to shut off services in your [...] often do you attend chur ch or rastafari services? More than 4 times per year 01/13/2024 Do you belong to any clubs o r organizations such as restorationism groups, unions, fraternal or athletic groups, or [...] place to sleep or slept in a nursing home (including now)? No 01/13/2024 Personal Safety Answer Date Recorded Have you ever been in or are you currently in a harmful physical or emotional relationship or is someone making you feel afraid or unsafe? Denies 01/10/2024 Sex and Gender Information Value Date Recorded Sex Assigned at Not on file Legal Sex Male 7:26 PM LINE SERVICE SUPERVISOR Gender Identity Not on file Sexual Orientation [...] 06/17/2018, 02/26 Hepatitis B Screening Discontinued Insurance [facility] MEDICARE ADVANTAGE UHC MEDICARE ADVANTAGE UHC MEDICARE ADVANTAGE UHC MEDICARE ADVANTAGE Advance Directives For more information, please contact: [phone] * Full Code (Latest Code Status on File) Date Activated Date Inactivated Comments 01/10/2024 6:17 PM 01/16/2024 7:40 PM Care Teams Torch Straightener And Heater Relationship Specialty Start Date End Date Martin Mclean MD PCP - General 12/25/16
[2025-05-07 02:29] VITALS: BP 142/74; PULSE 61; RESP 18; TEMP 36.6; O2SAT 99
--- NOTE | 2025-05-07 05:09 | ED_ITS ---
HPI - Headache General Chief Complaint: Headache Stated Complaint: martin and neck pain Time Seen by Provider: 05/07/25 01:35 History of Present Illness HPI Narrative: 89-year-old male with history of arthritis presenting to the emergency depart with a headache and right-sided neck pain. Patient states that he occasionally gets neck pain that radiates to his head causing a headache. He took Tylenol prior to arrival had symptomatic resolution. He has no symptoms at this time and states that he would like to go home. Denies any nausea, vomiting, vision changes. No trauma or injury. He was otherwise in his normal state of health, ambulatory his baseline with no neurological deficits or complaints. Patient has no symptoms during evaluation. Related Data Home Medications ?Medication ?Instructions ?Recorded ?Confirmed ?Last Taken ?Type amlodipine 5 mg tablet 5 mg PO DAILY 02/26/23 05/07/25 Unknown History brimonidine 0.2 %-timolol 0.5 % 1 drp EACH EYE Q12H 02/26/23 05/07/25 Unknown History eye drops (Combigan) latanoprost 0.005 % eye drops 1 drp EACH EYE DAILY 02/26/23 05/07/25 Unknown History olmesartan 40 1 tablet PO DAILY 02/26/23 05/07/25 Unknown History mg-hydrochlorothiazide 25 mg tablet dorzolamide 2 % eye drops 1 drp EACH EYE BID 10/19/23 05/07/25 10/19/23 History netarsudil 0.02 % eye drops 1 drp ophthalmic (eye) DAILY 10/19/23 05/07/25 Unknown History (Rhopressa) ascorbic acid (vitamin C) 500 mg mg PO 11/03/23 11/05/23 Unknown History capsule Vision Formula 50 BYMOUTH 07/05/24 Unknown History Allergies Allergy/AdvReac Type Severity Reaction Status Date / Time orphenadrine Allergy Unknown Verified 07/05/24 15:18 Review of Systems Review of Systems: As reviewed above [facility] Past Medical History Medical History Vascular malformation of liver Iron deficiency anemia Glaucoma Atherosclerotic vascular disease Enlarged prostate Primary osteoarthritis of knees, bilateral Hypertension Surgical History Surgical History History of colon surgery History of cholecystectomy Family History Family History Other Family history non-contributory Social History Social History Social History: Surrogate medical decision maker: Jeaneth Richardson, spouse. Code status: Full code. Smoking status: Former smoker Alcohol intake: never Substance use: never Do You Feel Safe in your Home?: Yes Lack of Transportation: No Lack of Food: Never True Current Housing: I Have Housing Concerned About Future Housing: No Difficulty Paying Gas/Electric Bills: No Difficulty Paying for Meds: No Currently Unemployed: No Education: High School Diploma/GED Difficulty w/ Childcare or Family Care: No Additional living arrangements comments: Lives with spouse in [place]. Children live close and are around frequently. Additional occupation/education comments: Retired from [employer]. Spiritual care concerns: No Exam Narrative: GENERAL: [Well-appearing, well-nourished, and in no acute distress.] HEAD: [Normocephalic, atraumatic.] EYES: [PERRLA and EOMI.] ENT: Nares clear, no rhinorrhea or epistaxis. Mucous membranes moist. NECK: Supple. CHEST: No respiratory distress HEART: Normal perfusion ABDOMEN: [Soft, nondistended], [nontender], [No rigidity or guarding] EXTREMITIES: Normal range of motion. [No edema.] SKIN: Warm, dry, no rash. NEURO: [No focal deficits]. Alert and oriented [x3.] PSYCH: [Normal mood and affect.] Course Vital Signs Vital signs: Vital Signs Temperature 36.7 C 05/07/25 00:28 Pulse Rate 63 05/07/25 00:28 Respiratory Rate 14 05/07/25 00:28 Blood Pressure 155/67 H 05/07/25 00:28 Pulse Oximetry 97 05/07/25 00:28 Oxygen Delivery Room Air 05/07/25 00:28 Temperature 36.6 C 05/07/25 02:29 Pulse Rate 61 05/07/25 02:29 Respiratory Rate 18 05/07/25 02:29 Blood Pressure 142/74 H 05/07/25 02:29 Pulse Oximetry 99 05/07/25 02:29 Oxygen Delivery Room Air 05/07/25 00:28 MDM - Headache MDM Narrative Medical decision making narrative: 89-year-old male with history of arthritis presenting to the emergency depart with a headache and right-sided neck pain. Patient states that he occasionally gets neck pain that radiates to his head causing a headache. He took Tylenol prior to arrival had symptomatic resolution. He has no symptoms at this time and states that he would like to go home. Denies any nausea, vomiting, vision changes. No trauma or injury. He was otherwise in his normal state of health, ambulatory his baseline with no neurological deficits or complaints. Patient has no symptoms during evaluation. Patient has unremarkable vital signs, unremarkable examination, no symptomatology. Patient's symptoms resolved with Tylenol prior to arrival. He is safe for discharge with PCP follow-up and return precautions. Medical Records Attestation: I reviewed the patient's medical records. Discharge Plan Discharge Clinical Impression: Cervical muscle strain, Headache Patient Disposition: Home Condition: Stable Instructions: Antibiotic Form Additional Instructions: Take up to 1000 mg of extra-strength Tylenol every 8 hours for aches and pains. You can apply Voltaren gel and topical lidocaine creams to the back of the neck for helping pain control. Return if you start having worsening signs or symptoms, intractable headaches, fevers, chills, nausea, vomiting, vision changes or any other emergent concerns otherwise follow-up with regular doctors outpatient. Patient Language: Occitan Prescriptions: No Action amlodipine 5 mg tablet 5 mg PO DAILY brimonidine-timolol [Combigan] 0.2-0.5 % drops 1 drp EACH EYE Q12H latanoprost 0.005 % drops 1 drp EACH EYE DAILY olmesartan-hydrochlorothiazide 40-25 mg tablet 1 tablet PO DAILY ascorbic acid (vitamin C) 500 mg capsule PO Vision Formula 50 BYMOUTH Rhopressa 0.02 % drops 1 drp ophthalmic (eye) DAILY dorzolamide 2 % drops 1 drp EACH EYE BID ferrous sulfate 325 mg (65 mg iron) Tablet,Delayed Release (Dr/Ec) 325 mg PO BID Qty: 60 2RF Follow-up/Referrals: Vinay,Martin Ward MD [Primary Care Provider] - Time of Disposition: 01:48
== END 2025-05-07 02:30 | disposition home or self-care (01) ==
LOC: ANHED 02:12
PROVIDERS: Emergency Provider Student in an Organized Health Care Education/Training Program; PCP Internal Medicine
DX: R51.9 Headache, unspecified (principal); S16.1XXA Strain of muscle, fascia and tendon at neck level, initial encounter; I10 Essential (primary) hypertension; I70.90 Unspecified atherosclerosis; D50.9 Iron deficiency anemia, unspecified; H40.9 Unspecified glaucoma; N40.0 Benign prostatic hyperplasia without lower urinary tract symptoms; M17.0 Bilateral primary osteoarthritis of knee; Z87.891 Personal history of nicotine dependence; Z90.49 Acquired absence of other specified parts of digestive tract; Z79.899 Other long term (current) drug therapy; X58.XXXA Exposure to other specified factors, initial encounter
CPT/HCPCS: 99283